=== PATIENT | male | born 1955 | race Caucasian/White ===

== ENCOUNTER 2024-01-25 06:21 | Observation (INO) | payer OTHER ==
[2024-01-25] MEDS ORDERED: BACIGUENT 30 GM ONE (07:16)
[2024-01-25] MEDS ORDERED: DIPRIVAN 200 MG/20 ML IV ONE ×4 (09:04→09:31)
[2024-01-25] MEDS ORDERED: MORPHINE SULFATE 2 MG INJ ONE ×3 (10:07→10:40)
[2024-01-25] MEDS ORDERED: Hydromorphone 1 mg/ml Injection ONE ×2 (10:52→11:00)
[2024-01-25] MEDS ORDERED: Lactated Ringers 1,000 ML IV ONE ×2 (10:57→15:00)
--- NOTE | 2024-01-25 12:01 | XRAY ---
Indication: Spinal cord stimulator trial. Intraoperative fluoroscopy provided for 6 minutes 22 seconds. 3 digital spot images submitted for interpretation demonstrates introducer needle tip posterior to thoracolumbar junction. Ultimately, a single epidural lead inserted with tip positioned somewhere mid thoracic spine. Correlate with intraoperative findings/report.
--- NOTE | 2024-01-25 12:25 | XRAY ---
Six minutes and 22 seconds of fluoroscopy was used in surgery for a spinal cord stem trial.
[2024-01-25] MEDS ORDERED: Sodium Chloride 0.9(Preservative Free) 10 ML IJ ONE (13:26)
[2024-01-25] MEDS ORDERED: LIDOCAINE HCL 1% 50 MG/5 ML VL PF IJ ONE (13:26)
[2024-01-25] MEDS ORDERED: Hydromorphone 1 mg/ml Injection IV PRN (13:39)
--- NOTE | 2024-01-25 13:49 | PCM.HP ---
History of Present Illness - Chief Complaint Chief Complaint: back pain post spinal stim placement Date: 01/25/24 History of Present Illness: is a 68 year old male with PMHX of BPH, heart stent, peripheral neuropathy, chronic thoracic/lumbar back pain with radiculopathy > 10 yrs. He had a procedure with pain management today where spinal stimulator was placed. In post op area he woke up with increased pain. Pain may be second to laying on abd. for extended periods of time per pain management physician Dr. See. He had to lay on his abdomen for over an hour during procedure. Spinal stimulator is currently not on. Pt reports versed was helpful post OR. Pt reports 8/10 pain with 1 hour post Dilaudid 1 mg IV. Dilaudid changed to 2mg Q4 PRN. Will restart lyrica as he describes thoracic and lumbar radiculopathy that has increased down BL legs post procedure. This has increased more than normal post procedure. Will start baclofen x1 dose now. May apply ice pack to back PRN. He has not urinated since procedure today. He also has not had anything to eat and not much to drink. Will obtain bladder scan for further eval. May need roblero. He denies CP, SOB, abd. pain. N/V/D. Pt reported dialudid 2mg is not helping his pain at this point either. He has taken norco in the past and this was helpful for his pain. However, [facility] and changed to belbuca. He last took Belcuca this AM and does not have anymore with him. He takes Belbuca BID. Will start [place] for now. Nurse to call and start Belbuca in the AM. We do not carry Belbuca at this hospital. Discussed plan of care with pt and nurse. - Review of Systems Constitutional: No Fever, No Chills Eyes: No Symptoms Ears, Nose, & Throat: No Symptoms Respiratory: No Cough, No Short Of Breath Cardiac: No Chest Pain, No Edema, No Syncope Abdominal/Gastrointestinal: No Abdominal Pain, No Nausea, No Vomiting, No Diarrhea Genitourinary Symptoms: No Dysuria Musculoskeletal: Back Pain (lumbar), No Neck Pain Skin: No Rash Neurological: No Dizziness, No Focal Weakness, No Sensory Changes Psychological: No Symptoms Endocrine: No Symptoms Hematologic/Lymphatic: No Symptoms Immunological/Allergic: No Symptoms Medications & Allergies Allergies/Adverse Reactions: Allergies Allergy/AdvReac Type Severity Reaction Status Date / Time No Known Drug Allergies Allergy Unverified 01/25/24 14:06 - Past Medical History Past Medical History: Yes Neurological History: Peripheral Neuropathy ENT History: No Pertinent History Cardiac History: Other (heart stent) Respiratory History: No Pertinent History Endocrine Medical History: No Pertinent History Musculoskelatal History: Other (chronic lumnar and thoracic back pain >10 yrs with radiculopathy) GI Medical History: No Pertinent History History: Other (BPH) Pyscho-Social History: No Pertinent History Male Reproductive Disorders: No Pertinent History - Past Surgical History Past Surgical History: Yes Cardiac History: Cardiac Stent Respiratory Surgery: No Pertinent History GI Surgical History: No Pertinent History Genitourinary Surgical Hx: No Pertinent History Musculskeletal Surgical Hx: No Pertinent History, Joint Replacement (knee) Male Surgical History: No Pertinent History Significant Family History: no pertinent family hx - Physical Exam General Appearance: moderate distress, alert, obese Neurologic Exam: alert, oriented x 3, cooperative, normal mood/affect, nml cerebellar function, nml station & gait, sensation nml, No motor deficits Eye Exam: PERRL/EOMI, eyes nml inspection Ears, Nose, Throat Exam: normal ENT inspection, TMs normal, pharynx normal, moist mucous membranes Neck Exam: normal inspection, non-tender, supple, full range of motion Respiratory Exam: normal breath sounds, lungs clear, No respiratory distress Cardiovascular Exam: regular rate/rhythm, normal heart sounds, normal peripheral pulses Gastrointestinal/Abdomen Exam: soft, normal bowel sounds, No tenderness, No mass Back Exam: decreased range of motion, muscle spasm, point tenderness, No CVA tenderness, No vertebral tenderness Extremity Exam: normal inspection, normal range of motion, pelvis stable Skin Exam: normal color, warm, dry, No rash Lymphatic Exam: No adenopathy Results - Radiology Impressions Radiology Exams & Impressions: Radiology Procedures Category Date Time Status FLUORO GUIDE NEEDLE PLACE-PMG Routine Exams 01/25/24 00:21 Completed LUMBAR LIMITED (2 OR 3 VIEWS) Routine Exams 01/25/24 00:21 Completed - Other Procedures and Tests Respiratory Therapy 01/25/24 13:25 Oxygen Nasal Cannula 3 lpm Assessment/Plan (1) Acute lumbar back pain Current Visit: Yes Status: Acute Qualifiers: Back pain laterality: bilateral Sciatica laterality: bilateral sciatica Assessment & Plan: - Acute on Chronic - Pain 07/24 - Post spinal stimulator placement with Dr. See - pain management, today - admission observation for uncontrolled pain post procedure. - Dilaudid- narcotic pain medication IV for break through pain - PO narcotic pain meds - baclofen muscle relaxer x1 - continue Lyrica for radicular pain - ice pack PRN - Tele - Narcan - F/u with pain mgnt OP - Pt reported dialudid 2mg is not helping his pain at this point either. He has taken norco in the past and this was helpful for his pain. However, [facility] and changed to belbuca. He last took Belcuca this AM and does not have anymore with him. He takes Belbuca BID. Will start [place] for now. Will stop Dilaudid IV. Nurse to call and start Belbuca in the AM. We do not carry Belbuca at this hospital. Discussed plan of care with pt and nurse. Code(s): M54.50 - LOW BACK PAIN, UNSPECIFIED (2) Thoracic radiculopathy Current Visit: Yes Status: Acute Assessment & Plan: - Pt reports acute on chronic pain - see above plan for acute lumbar pain. Code(s): M54.14 - RADICULOPATHY, THORACIC REGION (3) Obesity, morbid, BMI 40.0-49.9 Current Visit: Yes Status: Chronic Assessment & Plan: - encouraged AHA diet and exercise as tolerated. Code(s): E66.01 - MORBID (SEVERE) OBESITY DUE TO EXCESS CALORIES (4) BPH (benign prostatic hyperplasia) Current Visit: Yes Status: Chronic Assessment & Plan: - Ccntinue flomax - Bladder scan PRN VTE: SCD Next of KIN: , Rabia Mccrary [phone] D/c plan: tomorrow Code status: Full Code(s): N40.0 - BENIGN PROSTATIC HYPERPLASIA WITHOUT LOWER URINRY TRACT SYMP Telemedicine Encounter - Telemedicine Encounter Telemedicine Encounter: The entirety of this encounter was performed via Telemedicine"
[2024-01-25] MEDS ORDERED: TYLENOL 325 MG PO PRN (13:52)
[2024-01-25] MEDS ORDERED: Compazine 10 MG/2 ML IM PRN (13:52)
[2024-01-25 14:09] LABS: Hematocrit 38.3 % (42-50); Hemoglobin 11.4 g/dL (12.5-18.0); Mean Cell Volume 95.3 fL (78-100); Mean Corpuscular Hemoglobin 28.4 pg (26-32); Mean Corpuscular Hgb Concent. 29.8 g/dL (32-36); Mean Platelet Volume 9.2 fL (7.5-11.0); Platelet Count 162 x10^3/uL (150-450); Red Blood Count 4.02 x10^6/uL (4.1-5.6); Red Cell Distribution Width 13.5 % (11.5-14.0); White Blood Count 8.4 x10^3/uL (4.0-10.5)
[2024-01-25] MEDS: Hydromorphone 1 mg/ml Injection IV PRN (14:13)
[2024-01-25 14:22] LABS: ALBUMIN 3.8 g/dL (3.5-5.0); ANION GAP 12.1 MEQ/L (5-15); BILIRUBIN,TOTAL 0.2 mg/dL (0.2-1.3); Calcium 8.4 mg/dL (8.4-10.2); Creatinine 1 0.93 mg/dL (0.66-1.25); EST GLOMERULAR FILTRATION RATE 88.3 ML/MIN; Potassium 4.7 mmol/L (3.5-5.1); Total Protein 6.1 g/dL (6.3-8.2)
[2024-01-25] MEDS: LYRICA 75 MG CAP PO SCH (14:28)
[2024-01-25] MEDS ORDERED: Narcan 0.4 MG/ML IV PRN (14:45)
[2024-01-25] MEDS: LIORESAL 10 MG PO ONE (14:51)
[2024-01-25] MEDS: Lactated Ringers 1,000 ML IV SCH (15:50)
[2024-01-25] MEDS: NORCO 5/325 MG PO PRN (17:03)
[2024-01-25] MEDS: NORCO 5/325 MG PO ONE (18:23)
[2024-01-25] MEDS: TYLENOL 325 MG PO SCH (20:16)
[2024-01-25] MEDS: Flomax 0.4 MG PO SCH (21:48)
[2024-01-25] MEDS: ZOCOR 20MG PO SCH (21:48)
[2024-01-26] MEDS: Hydromorphone 1 mg/ml Injection IV ONE (01:00)
[2024-01-26 04:46] LABS: Hematocrit 36.1 % (42-50); Hemoglobin 11.2 g/dL (12.5-18.0); Mean Cell Volume 92.8 fL (78-100); Mean Corpuscular Hemoglobin 28.8 pg (26-32); Mean Platelet Volume 9.8 fL (7.5-11.0); Platelet Count 179 x10^3/uL (150-450); Red Blood Count 3.89 x10^6/uL (4.1-5.6); Red Cell Distribution Width 13.9 % (11.5-14.0); White Blood Count 7.5 x10^3/uL (4.0-10.5)
[2024-01-26] MEDS: NORCO 10-325 MG PO PRN (05:13)
[2024-01-26 05:20] LABS: ANION GAP 12.6 MEQ/L (5-15); Calcium 8.2 mg/dL (8.4-10.2); Creatinine 1 0.86 mg/dL (0.66-1.25); EST GLOMERULAR FILTRATION RATE 93.2 ML/MIN; Potassium 4.4 mmol/L (3.5-5.1)
[2024-01-26] MEDS: LYRICA 150MG PO SCH (07:43)
[2024-01-26] MEDS: PERCOCET TABLET 5/325MG PO ONE (07:43)
[2024-01-26] MEDS: MEDICATION ON HOLD MC SCH ×2 (09:19→09:20)
[2024-01-26] MEDS: Cymbalta 30 MG Capsule PO SCH (09:22)
[2024-01-26] MEDS: Toprol Xl 50 MG PO SCH (09:22)
--- NOTE | 2024-01-26 12:18 | PCM.NOTE ---
Date and Time: 01/26/24 1209 Subjective Assessment: 01/25/24 is a 68 year old male with PMHX of BPH, heart stent, peripheral neuropathy, chronic thoracic/lumbar back pain with radiculopathy > 10 yrs. He had a procedure with pain management today where spinal stimulator was placed. In post op area he woke up with increased pain. Pain may be second to laying on abd. for extended periods of time per pain management physician Dr. See. He had to lay on his abdomen for over an hour during procedure. Spinal stimulator is currently not on. Pt reports versed was helpful post OR. Pt reports 8/10 pain with 1 hour post Dilaudid 1 mg IV. Dilaudid changed to 2mg Q4 PRN. Will restart lyrica as he describes thoracic and lumbar radiculopathy that has increased down BL legs post procedure. This has increased more than normal post procedure. Will start baclofen x1 dose now. May apply ice pack to back PRN. He has not urinated since procedure today. He also has not had anything to eat and not much to drink. Will obtain bladder scan for further eval. May need roblero. He denies CP, SOB, abd. pain. N/V/D. Pt reported dialudid 2mg is not helping his pain at this point either. He has taken norco in the past and this was helpful for his pain. However, [facility] and changed to belbuca. He last took Belcuca this AM and does not have anymore with him. He takes Belbuca BID. Will start [place] for now. Nurse to call and start Belbuca in the AM. We do not carry Belbuca at this hospital. Discussed plan of care with pt and nurse. 01/26/24 Pt continues to have pain this morning. [place] changed to percocet and lyrica changed to 300mg BID. Pt had an episode overnight where he went onto his knees and crawled to the bathroom and pulled the call light. He now has abrasions to the left knee. They had to use the Jennifer lift to get him up. It appears overnight he was started on Dilaudid again. Pt states this does nothing for his pain, this was stopped. He is c/o radiating pain from thoracic, lumbar region to BL legs/ thighs in the front. Discussed case with Dr. See- pain management. Will further evaluate with CT with IV contrast of thoracic and lumbar spine. was to bring in pt's Belbuca but she has yet to show up today and it it now noon. She did call the pt this morning and speak to him. We have been unable to reach her since she left yesterday. A voicemail was left last night to bring his Belbuca in this AM. Pt states this medication controls his pain best. Once she brings this in will stop Percocet. Pt did not do well with PT and cannot walk or stand for any period of time. He may need rehab at d/c. He denies CP, SOb, abd. pain, N/V/D. - Review of Systems Constitutional: Weakness, No Fever, No Chills Eyes: No Symptoms Ears, Nose, & Throat: No Symptoms Respiratory: No Cough, No Short Of Breath Cardiac: No Chest Pain, No Edema, No Syncope Abdominal/Gastrointestinal: No Abdominal Pain, No Nausea, No Vomiting, No Diarrhea Genitourinary Symptoms: No Dysuria Musculoskeletal: No Back Pain, No Neck Pain Skin: No Rash Neurological: Parasthesia (radicular pain BL upper thighs), No Dizziness, No Focal Weakness, No Sensory Changes Psychological: No Symptoms Endocrine: No Symptoms Hematologic/Lymphatic: No Symptoms Immunological/Allergic: No Symptoms Objective Exam General Appearance: moderate distress, alert, obese Neurologic Exam: alert, oriented x 3, nml cerebellar function, motor weakness, abnormal gait, No motor deficits Skin Exam: normal color, warm, dry, abrasion (left knee) Eye Exam: PERRL, EOMI, eyes nml inspection Ears, Nose, Throat Exam: normal ENT inspection, pharynx normal, moist mucous membranes Neck Exam: normal inspection, non-tender, supple, full range of motion Respiratory Exam: normal breath sounds, lungs clear, No respiratory distress Cardiovascular Exam: regular rate/rhythm, normal heart sounds Gastrointestinal/Abdomen Exam: soft, No tenderness, No mass Extremity Exam: normal inspection, normal range of motion Back Exam: normal inspection, normal range of motion, No CVA tenderness, No vertebral tenderness Male Genitalia Exam: deferred Rectal Exam: deferred Objective Data Vital Signs: Vital Signs - 24 hr Temp Pulse Resp BP BP Pulse Ox 01/26/24 11:43 98.2 F 76 11 L 118/57 140/72 98 01/26/24 08:00 98.7 F 86 20 140/72 95 01/26/24 07:49 97 01/26/24 04:00 98.9 F 82 26 H 134/82 98 01/26/24 01:47 96 01/25/24 23:40 99.8 F 80 24 158/67 94 L 01/25/24 19:44 100.0 F 89 17 146/65 93 L 01/25/24 16:00 98.6 F 77 12 119/69 96 01/25/24 14:29 97.4 F 101 H 19 150/80 97 01/25/24 14:22 97 01/25/24 13:36 97.4 F 101 H 19 150/80 97 Pain Assessment - Last Documented Pain Intensity 4 Pain Scale Used 0-10 Pain Scale Intake and Output: Intake & Output 01/24/24 01/25/24 01/26/24 01/27/24 11:59 11:59 11:59 11:59 Intake Total 1402 Output Total 1150 Balance 252 Weight 139.5 kg Lab Results: Lab Results-Last 24 Hours 01/25/24 01/25/24 01/26/24 Range/Units 14:00 14:00 04:12 WBC 8.4 7.5 (4.0-10.5) x10^3/uL RBC 4.02 L 3.89 L (4.1-5.6) x10^6/uL Hgb 11.4 L 11.2 L (12.5-18.0) g/dL Hct 38.3 L 36.1 L (42-50) % MCV 95.3 92.8 (78-100) fL MCH 28.4 28.8 (26-32) pg MCHC 29.8 L 31.0 L (32-36) g/dL RDW 13.5 13.9 (11.5-14.0) % Plt Count 162 179 (150-450) x10^3/uL MPV 9.2 9.8 (7.5-11.0) fL Sodium 139 (135-145) mmol/L Potassium 4.7 (3.5-5.1) mmol/L Chloride 107 (98-107) mmol/L Carbon Dioxide 25 (22-30) mmol/L Anion Gap 12.1 (5-15) MEQ/L BUN 20 (9-20) mg/dL Creatinine 0.93 (0.66-1.25) mg/dL Estimated GFR 88.3 ML/MIN Glucose 139 H (74-106) mg/dL Calcium 8.4 (8.4-10.2) mg/dL Total Bilirubin 0.20 (0.2-1.3) mg/dL AST 25 (17-59) U/L ALT 17 (0-50) U/L Alkaline Phosphatase 89 (38-126) U/L Serum Total Protein 6.1 L (6.3-8.2) g/dL Albumin 3.8 (3.5-5.0) g/dL 01/26/24 Range/Units 04:12 WBC (4.0-10.5) x10^3/uL RBC (4.1-5.6) x10^6/uL Hgb (12.5-18.0) g/dL Hct (42-50) % MCV (78-100) fL MCH (26-32) pg MCHC (32-36) g/dL RDW (11.5-14.0) % Plt Count (150-450) x10^3/uL MPV (7.5-11.0) fL Sodium 136 (135-145) mmol/L Potassium 4.4 (3.5-5.1) mmol/L Chloride 103 (98-107) mmol/L Carbon Dioxide 25 (22-30) mmol/L Anion Gap 12.6 (5-15) MEQ/L BUN 18 (9-20) mg/dL Creatinine 0.86 (0.66-1.25) mg/dL Estimated GFR 93.2 ML/MIN Glucose 132 H (74-106) mg/dL Calcium 8.2 L (8.4-10.2) mg/dL Total Bilirubin (0.2-1.3) mg/dL AST (17-59) U/L ALT (0-50) U/L Alkaline Phosphatase (38-126) U/L Serum Total Protein (6.3-8.2) g/dL Albumin (3.5-5.0) g/dL Radiology Exams: Radiology Procedures Category Date Time Status FLUORO GUIDE NEEDLE PLACE-PMG Routine Exams 01/25/24 00:21 Completed LSPINE W/WO CONTRAST [CT] Routine Exams 01/26/24 07:25 Ordered LUMBAR LIMITED (2 OR 3 VIEWS) Routine Exams 01/25/24 00:21 Completed THORACIC SPINE W AND W/O CONTR [CT] Routine Exams 01/26/24 07:25 Ordered Assessment/Plan (1) Acute lumbar back pain Current Visit: Yes Status: Acute Qualifiers: Back pain laterality: bilateral Sciatica laterality: bilateral sciatica Code(s): M54.50 - LOW BACK PAIN, UNSPECIFIED (2) Thoracic radiculopathy Current Visit: Yes Status: Acute Code(s): M54.14 - RADICULOPATHY, THORACIC REGION (3) Obesity, morbid, BMI 40.0-49.9 Current Visit: Yes Status: Chronic Code(s): E66.01 - MORBID (SEVERE) OBESITY DUE TO EXCESS CALORIES (4) BPH (benign prostatic hyperplasia) Current Visit: Yes Status: Chronic Assessment & Plan: (1) Acute lumbar back pain Current Visit: Yes Status: Acute Qualifiers: Back pain laterality: bilateral Sciatica laterality: bilateral sciatica Assessment & Plan: - Acute on Chronic - Pain 07/24 - Post spinal stimulator placement with Dr. See - pain management, today - admission observation for uncontrolled pain post procedure. - Dilaudid- narcotic pain medication IV for break through pain - PO narcotic pain meds - baclofen muscle relaxer x1 - continue Lyrica for radicular pain - ice pack PRN - Tele - Narcan - F/u with pain mgnt OP - Pt reported dialudid 2mg is not helping his pain at this point either. He has taken norco in the past and this was helpful for his pain. However, [facility] and changed to belbuca. He last took Belcuca this AM and does not have anymore with him. He takes Belbuca BID. Will start [place] for now. Will stop Dilaudid IV. Nurse to call and start Belbuca in the AM. We do not carry Belbuca at this hospital. Discussed plan of care with pt and nurse. 01/25 - CT lumbar spine with contrast - PT eval- did not do well today, + weakness. Code(s): M54.50 - LOW BACK PAIN, UNSPECIFIED (2) Thoracic radiculopathy Current Visit: Yes Status: Acute Assessment & Plan: - Pt reports acute on chronic pain - see above plan for acute lumbar pain. 01/25 - CT Thoracic spine with IV contrast Code(s): M54.14 - RADICULOPATHY, THORACIC REGION (3) Obesity, morbid, BMI 40.0-49.9 Current Visit: Yes Status: Chronic Assessment & Plan: - encouraged AHA diet and exercise as tolerated. Code(s): E66.01 - MORBID (SEVERE) OBESITY DUE TO EXCESS CALORIES (4) BPH (benign prostatic hyperplasia) Current Visit: Yes Status: Chronic Assessment & Plan: - Ccntinue flomax - Bladder scan PRN VTE: SCD Next of KIN: , Rabia Mccrary [phone] D/c plan: tomorrow? Code status: Full Code(s): N40.0 - BENIGN PROSTATIC HYPERPLASIA WITHOUT LOWER URINRY TRACT SYMP Code(s): N40.0 - BENIGN PROSTATIC HYPERPLASIA WITHOUT LOWER URINRY TRACT SYMP
[2024-01-26] MEDS: PERCOCET TABLET 5/325MG PO PRN (13:18)
--- NOTE | 2024-01-26 13:36 | XRAY ---
Indication: Pain with radiculopathy. Multiple contiguous axial images obtained through the thoracic spine prior to and following 80 cc as ordered. Sagittal and coronal reformatted images obtained. Comparison: None Osseous structures demineralized. Axial images negative for acute fracture, suspicious bony lesions, or spinal canal stenosis. Multilevel mild/moderate bridging and nonbridging anterior endplate osteophytes. Lower thoracic segments demonstrates a few tiny Schmorl nodes Single epidural lead terminates T7. Sagittal and coronal reformatted images demonstrates normal thoracic alignment with minimal T4-L1 disc space narrowing. No acute compression fracture or subluxation. Visualized noncontrasted soft tissues demonstrates minimal pulmonary dependent atelectasis, multiple tiny bilateral pulmonary calcified granulomas, small bilateral hilar calcified nodes, extensive coronary calcifications, and mildly arteriosclerotic aorta. CT lumbar spine reported separately. Impression: 1. Chronic findings including osteopenia, multilevel degenerative changes, tiny Schmorl nodes, epidural lead terminating T7, arteriosclerotic disease, and old granulomatous disease. 2. Remaining CT thoracic spine with and without contrast exam is negative.
--- NOTE | 2024-01-26 13:44 | XRAY ---
Indication: Pain with radiculopathy. Multiple contiguous axial images obtained through the lumbar spine prior to and following 80 cc as ordered. Sagittal and coronal reformatted images obtained. Comparison: None CT thoracic spine reported separately. Osseous structures demineralized. Axial images negative for acute fracture, suspicious bony lesions, or spinal canal stenosis. Minimal/mild multilevel endplate spurring greatest at L1-L2, minimal degenerative vacuum disc phenomena at L1-L2, and L1-S1 broad-based disc bulge greatest at L4-S1 levels. Incidental multilevel tiny Schmorl nodes and single epidural lead entering posteriorly at T11-T12 with left-sided epidural generator. Sagittal and coronal reformatted images demonstrates normal lumbar alignment with L1-L3 disc space narrowing. No acute compression fracture or subluxation. Visualized noncontrasted soft tissues demonstrates right renal cortical scarring, 2.6 cm right upper renal round enhancing lesion, nonobstructing left renal micro-calculi largest 6 mm, and mild scattered aortoiliac calcifications without AAA. CT lumbar spine reported separately. Impression: 1. Multilevel broad-based disc bulge greatest at L4-S1 levels. 2. 2.6 cm right renal enhancing mass worrisome for malignancy. 3. Chronic findings including osteopenia, multilevel tiny Schmorl nodes, arteriosclerotic disease, and nonobstructing left renal micro-calculi.
[2024-01-26] MEDS: ECOTRIN 81 MG PO SCH (17:17)
[2024-01-26] MEDS: PATIENT OWN MEDICATION BC SCH (20:46)
[2024-01-27 05:21] LABS: Hematocrit 38.9 % (42-50); Hemoglobin 11.6 g/dL (12.5-18.0); Mean Cell Volume 95.1 fL (78-100); Mean Corpuscular Hemoglobin 28.4 pg (26-32); Mean Corpuscular Hgb Concent. 29.8 g/dL (32-36); Platelet Count 164 x10^3/uL (150-450); Red Blood Count 4.09 x10^6/uL (4.1-5.6); Red Cell Distribution Width 13.7 % (11.5-14.0); White Blood Count 6.6 x10^3/uL (4.0-10.5)
[2024-01-27 05:38] LABS: ANION GAP 10.3 MEQ/L (5-15); Calcium 8.5 mg/dL (8.4-10.2); Creatinine 1 0.97 mg/dL (0.66-1.25); Potassium 4.7 mmol/L (3.5-5.1)
[2024-01-27] MEDS: Hydromorphone 1 mg/ml Injection IV PRN (06:34)
[2024-01-27] MEDS ORDERED: Hydromorphone 1 mg/ml Injection IV PRN (06:47)
--- NOTE | 2024-01-27 10:35 | PCM.NOTE ---
Date and Time: 01/27/24 1035 Subjective Assessment: 01/25/24 is a 68 year old male with PMHX of BPH, heart stent, peripheral neuropathy, chronic thoracic/lumbar back pain with radiculopathy > 10 yrs. He had a procedure with pain management today where spinal stimulator was placed. In post op area he woke up with increased pain. Pain may be second to laying on abd. for extended periods of time per pain management physician Dr. See. He had to lay on his abdomen for over an hour during procedure. Spinal stimulator is currently not on. Pt reports versed was helpful post OR. Pt reports 8/10 pain with 1 hour post Dilaudid 1 mg IV. Dilaudid changed to 2mg Q4 PRN. Will restart lyrica as he describes thoracic and lumbar radiculopathy that has increased down BL legs post procedure. This has increased more than normal post procedure. Will start baclofen x1 dose now. May apply ice pack to back PRN. He has not urinated since procedure today. He also has not had anything to eat and not much to drink. Will obtain bladder scan for further eval. May need roblero. He denies CP, SOB, abd. pain. N/V/D. Pt reported dialudid 2mg is not helping his pain at this point either. He has taken norco in the past and this was helpful for his pain. However, [facility] and changed to belbuca. He last took Belcuca this AM and does not have anymore with him. He takes Belbuca BID. Will start [place] for now. Nurse to call and start Belbuca in the AM. We do not carry Belbuca at this hospital. Discussed plan of care with pt and nurse. 01/26/24 Pt continues to have pain this morning. [place] changed to percocet and lyrica changed to 300mg BID. Pt had an episode overnight where he went onto his knees and crawled to the bathroom and pulled the call light. He now has abrasions to the left knee. They had to use the Jennifer lift to get him up. It appears overnight he was started on Dilaudid again. Pt states this does nothing for his pain, this was stopped. He is c/o radiating pain from thoracic, lumbar region to BL legs/ thighs in the front. Discussed case with Dr. See- pain management. Will further evaluate with CT with IV contrast of thoracic and lumbar spine. was to bring in pt's Belbuca but she has yet to show up today and it it now noon. She did call the pt this morning and speak to him. We have been unable to reach her since she left yesterday. A voicemail was left last night to bring his Belbuca in this AM. Pt states this medication controls his pain best. Once she brings this in will stop Percocet. Pt did not do well with PT and cannot walk or stand for any period of time. He may need rehab at d/c. He denies CP, SOB, abd. pain, N/V/D. 01/27/24 Pt has allodynia to BL thighs with light touch yells in pain, mood is labile. He admits to taking more than prescribed Belcuca at home, sometime 2-3 strips at time. This is prescribed by OR. It is taking 3-4 people to get him from bed to chair. Pain is improved sitting up in chair. He is eating and drinking well. He states he has leg weakness post spinal stim placement 2 days ago. He states he walked in here and now cannot walk. Pain management physician, Dr. See at [facility], is board certified in pain and neurology. He states sxs do not correlate. He did lay on his abdomen for almost 2 hours for procedure. Baclofen, dilaudid, norco, percocet did not help pain. So restarted on prescribed dose of belbuca by pain management at OR. Lyrica increased to max dosing and pt states this is not helping with radicular pain. CT of thoracic and lumbar region in chart to review. No new concerning findings per Dr. See at [facility]- pain mgnt that placed spinal stim. This is day 3 and sxs have not improved. He has been screaming out in pain at times. He is wanting us to give more of his home belbuca than what is prescribed. I do not feel comfortable doing this. Tele- Neurology consulted today to ask if he feels we need to transfer to OR. He follows OR for narcotic pain meds and was sent to pain management at [facility] for spinal stim placement. Suggested rehab placement for pt and he feels this will not be helpful for him if he cannot walk. Hopefully, Neurology can lead us in the proper direction. Pt has a f/u appointment with Dr. See Tuesday for spinal stim placement post procedure f/u. He denies CP, SOb, abd. pain, N/V/D. - Review of Systems Constitutional: Weakness, No Fever, No Chills Eyes: No Symptoms Ears, Nose, & Throat: No Symptoms Respiratory: No Cough, No Short Of Breath Cardiac: No Chest Pain, No Edema, No Syncope Abdominal/Gastrointestinal: No Abdominal Pain, No Nausea, No Vomiting, No Diarrhea Genitourinary Symptoms: No Dysuria Musculoskeletal: Back Pain, No Neck Pain Skin: No Rash Neurological: Other (pain with touching thighs), No Dizziness, No Focal Weakness, No Sensory Changes Psychological: No Symptoms, Emotional Lability Endocrine: No Symptoms Hematologic/Lymphatic: No Symptoms Immunological/Allergic: No Symptoms Objective Exam General Appearance: moderate distress, alert, obese Neurologic Exam: alert, oriented x 3, nml cerebellar function, sensation nml, ag itation, motor weakness, abnormal gait, other (allodynia BL thighs with light touch), No motor deficits Skin Exam: normal color, warm, dry Eye Exam: PERRL, EOMI, eyes nml inspection Ears, Nose, Throat Exam: normal ENT inspection, pharynx normal, moist mucous membranes Neck Exam: normal inspection, non-tender, supple, full range of motion Respiratory Exam: normal breath sounds, lungs clear, No respiratory distress Cardiovascular Exam: regular rate/rhythm, normal heart sounds Gastrointestinal/Abdomen Exam: soft, No tenderness, No mass Extremity Exam: normal inspection, limited range of motion (BLLE) Back Exam: normal inspection, decreased range of motion, No CVA tenderness, No vertebral tenderness Male Genitalia Exam: deferred Rectal Exam: deferred Objective Data Vital Signs: Vital Signs - 24 hr Temp Pulse Resp BP BP Pulse Ox 01/27/24 08:00 97.7 F 89 19 170/70 99 01/27/24 04:00 98.1 F 68 22 160/75 94 L 01/27/24 00:00 98.0 F 74 21 116/55 95 01/26/24 20:00 97.6 F 68 20 135/61 97 01/26/24 19:41 99 01/26/24 15:32 97.6 F 76 16 141/80 96 01/26/24 11:43 98.2 F 76 11 L 118/57 140/72 98 Pain Assessment - Last Documented Pain Intensity 8 Pain Scale Used 0-10 Pain Scale Intake and Output: Intake & Output 01/24/24 01/25/24 01/26/24 01/27/24 11:59 11:59 11:59 11:59 Intake Total 1402 2091 Output Total 1150 2704 Balance 252 -473 Weight 139.5 kg Lab Results: Lab Results-Last 24 Hours 01/27/24 01/27/24 01/27/24 Range/Units 04:25 04:25 04:25 WBC 6.6 (4.0-10.5) x10^3/uL RBC 4.09 L (4.1-5.6) x10^6/uL Hgb 11.6 L (12.5-18.0) g/dL Hct 38.9 L (42-50) % MCV 95.1 (78-100) fL MCH 28.4 (26-32) pg MCHC 29.8 L (32-36) g/dL RDW 13.7 (11.5-14.0) % Plt Count 164 (150-450) x10^3/uL MPV 10.0 (7.5-11.0) fL Sodium 140 (135-145) mmol/L Potassium 4.7 (3.5-5.1) mmol/L Chloride 105 (98-107) mmol/L Carbon Dioxide 29 (22-30) mmol/L Anion Gap 10.3 (5-15) MEQ/L BUN 20 (9-20) mg/dL Creatinine 0.97 (0.66-1.25) mg/dL Estimated GFR 84.0 ML/MIN Glucose 135 H (74-106) mg/dL Calcium 8.5 (8.4-10.2) mg/dL Creatine Kinase 271 H (55-170) U/L Radiology Exams: Radiology Procedures Category Date Time Status LSPINE W/WO CONTRAST [CT] Routine Exams 01/26/24 07:25 Completed THORACIC SPINE W AND W/O CONTR [CT] Routine Exams 01/26/24 07:25 Completed Multi-Disciplinary Progress Notes: Multi-Disciplinary Progress Notes 01/27/24 09:44 Physical Therapy Note by Mya ([id number])[facility] WAS SEEN FOR PHYSICAL THERAPY 01/27/24. PT WAS UP IN CHAIR UPON ENTERING AND WANTING TO GO BACK TO BED D/T PAIN AND DISCOMFORT IN B LEGS. PT O2 WAS 98% (ON 2L O2) AND HR 91 AT REST. PT HAS NOTABLE WEAKNESS IN B ANKLES AND THIGHS WELL HYPERALGESIA TO LIGHT TOUCH. PT STOOD MOD A X 2 FROM CHAIR WITH ROLLING WALKER AND THEN WALKED APPROXIMATELY 5 FEET WITH MIN-MOD A X 2. PT WAS THEN MOD A X 2 FOR SIT > SUPINE TRANSITION WITH CUING NEEDED FOR SAFETY OF BED POSITIONING. PT WAS LEFT IN BED WITH NURSING AIDS FOR HYGIENE TASKS, CALL LIGHT WAS WITHIN REACH. Initialized on 01/27/24 09:44 - END OF NOTE Assessment/Plan (1) Acute lumbar back pain Current Visit: Yes Status: Acute Qualifiers: Back pain laterality: bilateral Sciatica laterality: bilateral sciatica Code(s): M54.50 - LOW BACK PAIN, UNSPECIFIED (2) Thoracic radiculopathy Current Visit: Yes Status: Acute Code(s): M54.14 - RADICULOPATHY, THORACIC REGION (3) Obesity, morbid, BMI 40.0-49.9 Current Visit: Yes Status: Chronic Code(s): E66.01 - MORBID (SEVERE) OBESITY DUE TO EXCESS CALORIES (4) BPH (benign prostatic hyperplasia) Current Visit: Yes Status: Chronic Assessment & Plan: (1) Acute lumbar back pain Current Visit: Yes Status: Acute Qualifiers: Back pain laterality: bilateral Sciatica laterality: bilateral sciatica Assessment & Plan: - Acute on Chronic - Pain 07/24 - Post spinal stimulator placement with Dr. See - pain management, today - admission observation for uncontrolled pain post procedure. - Dilaudid- narcotic pain medication IV for break through pain - PO narcotic pain meds - baclofen muscle relaxer x1 - continue Lyrica for radicular pain - ice pack PRN - Tele - Narcan - F/u with pain mgnt OP - Pt reported dialudid 2mg is not helping his pain at this point either. He has taken norco in the past and this was helpful for his pain. However, [facility] and changed to belbuca. He last took Belcuca this AM and does not have anymore with him. He takes Belbuca BID. Will start [place] for now. Will stop Dilaudid IV. Nurse to call and start Belbuca in the AM. We do not carry Belbuca at this hospital. Discussed plan of care with pt and nurse. 01/25 - CT lumbar spine with contrast- reviewed and discussed with Dr. See and Dr. Hassan - PT eval- did not do well today, + weakness. - Discussed case in detail with Dr. See who placed spinal stim 01/26 - tele- neurology consult - Pt asking for more than what is prescribed of belcuca and admits to taking 2-3 strips at home, " what ever he feels like he needs." - Discussed taking [facility] - [facility] - Increased dose of Lyrica not helping pain per pt. - Per PT - taking 3-4 people to get pt from bed to chair. - Will need narcan at D/C. - Narcan on med list IP - Day 3 post spinal stim placement with no improvement - pain stim turned on 01/25 and he feels no improvement per pt. Code(s): M54.50 - LOW BACK PAIN, UNSPECIFIED (2) Thoracic radiculopathy Current Visit: Yes Status: Acute Assessment & Plan: - Pt reports acute on chronic pain - see above plan for acute lumbar pain. 01/25 - CT Thoracic spine with IV contrast- reviewed and discussed with Dr. See and Dr. Hassan Code(s): M54.14 - RADICULOPATHY, THORACIC REGION (3) Obesity, morbid, BMI 40.0-49.9 Current Visit: Yes Status: Chronic Assessment & Plan: - encouraged AHA diet and exercise as tolerated. Code(s): E66.01 - MORBID (SEVERE) OBESITY DUE TO EXCESS CALORIES (4) BPH (benign prostatic hyperplasia) Current Visit: Yes Status: Chronic Assessment & Plan: - Continue flomax - Bladder scan PRN - UA pending Code(s): N40.0 - BENIGN PROSTATIC HYPERPLASIA WITHOUT LOWER URINRY TRACT SYMP (5) Elevated creatine kinase Current Visit: Yes Status: Acute Assessment & Plan: - 2:2 laying on abd for extended period of time almost 2 hours during stim placement - CK 01/26 271- IVF (6) Renal mass, right Current Visit: Yes Status: Chronic Assessment & Plan: - as seen on lumbar CT: 2. 2.6 cm right renal enhancing mass worrisome for malignancy. - Pt aware of this and states this is chronic. He reports he follows Nephro OP for this at OR. VTE: SCD Next of KIN: , Rabia Mccrary [phone] D/c plan: tomorrow? Code status: Full Code(s): N28.89 - OTHER SPECIFIED DISORDERS OF KIDNEY AND URETER
[2024-01-27 16:50] LABS: ADD URINE CULTURE? NO (NO); Appearance Clear (Clear); Bacteria None Seen /HPF (None Seen); Bilirubin Negative (Negative); Blood Negative (Negative); Epithelial Cells None Seen /HPF (None Seen); Glucose, Urine Negative (Negative); Hyaline Casts NONE SEEN /LPF (0-2); Ketones Negative (Negative); Leukocyte Esterase Negative (Negative); Nitrite Negative (Negative); Protein,Urine Dip Negative (Negative); RBC 0-2 /HPF (0-5); Specific Gravity 1.015 (1.005-1.030); Urobilinogen 0.2 mg/dL (0.2); WBC 0-2 /HPF (0-5)
[2024-01-27] MEDS: LIORESAL 10 MG PO SCH (22:03)
[2024-01-28] MEDS ORDERED: APRESOLINE 20 MG/ML INJ IV PRN (07:35)
[2024-01-28 08:08] LABS: Hematocrit 37.9 % (42-50); Hemoglobin 11.7 g/dL (12.5-18.0); Mean Corpuscular Hgb Concent. 30.9 g/dL (32-36); Mean Platelet Volume 9.4 fL (7.5-11.0); Platelet Count 165 x10^3/uL (150-450); Red Blood Count 4.03 x10^6/uL (4.1-5.6); Red Cell Distribution Width 13.7 % (11.5-14.0); White Blood Count 7.8 x10^3/uL (4.0-10.5)
--- NOTE | 2024-01-28 08:21 | PCM.NOTE ---
Date and Time: 01/28/24 0813 Subjective Assessment: 01/25/24 is a 68 year old male with PMHX of BPH, heart stent, peripheral neuropathy, chronic thoracic/lumbar back pain with radiculopathy > 10 yrs. He had a procedure with pain management today where spinal stimulator was placed. In post op area he woke up with increased pain. Pain may be second to laying on abd. for extended periods of time per pain management physician Dr. See. He had to lay on his abdomen for over an hour during procedure. Spinal stimulator is currently not on. Pt reports versed was helpful post OR. Pt reports 8/10 pain with 1 hour post Dilaudid 1 mg IV. Dilaudid changed to 2mg Q4 PRN. Will restart lyrica as he describes thoracic and lumbar radiculopathy that has increased down BL legs post procedure. This has increased more than normal post procedure. Will start baclofen x1 dose now. May apply ice pack to back PRN. He has not urinated since procedure today. He also has not had anything to eat and not much to drink. Will obtain bladder scan for further eval. May need roblero. He denies CP, SOB, abd. pain. N/V/D. Pt reported dialudid 2mg is not helping his pain at this point either. He has taken norco in the past and this was helpful for his pain. However[facility] and changed to belbuca. He last took Belcuca this AM and does not have anymore with him. He takes Belbuca BID. Will start [place] for now. Nurse to call and start Belbuca in the AM. We do not carry Belbuca at this hospital. Discussed plan of care with pt and nurse. 01/26/24 Pt continues to have pain this morning. [place] changed to percocet and lyrica changed to 300mg BID. Pt had an episode overnight where he went onto his knees and crawled to the bathroom and pulled the call light. He now has abrasions to the left knee. They had to use the Jennifer lift to get him up. It appears overnight he was started on Dilaudid again. Pt states this does nothing for his pain, this was stopped. He is c/o radiating pain from thoracic, lumbar region to BL legs/ thighs in the front. Discussed case with Dr. See- pain management. Will further evaluate with CT with IV contrast of thoracic and lumbar spine. was to bring in pt's Belbuca but she has yet to show up today and it it now noon. She did call the pt this morning and speak to him. We have been unable to reach her since she left yesterday. A voicemail was left last night to bring his Belbuca in this AM. Pt states this medication controls his pain best. Once she brings this in will stop Percocet. Pt did not do well with PT and cannot walk or stand for any period of time. He may need rehab at d/c. He denies CP, SOB, abd. pain, N/V/D. 01/27/24 Pt has allodynia to BL thighs with light touch yells in pain, mood is labile. He admits to taking more than prescribed Belcuca at home, sometime 2-3 strips at time. This is prescribed by [facility]. It is taking 3-4 people to get him from bed to chair. Pain is improved sitting up in chair. He is eating and drinking well. He states he has leg weakness post spinal stim placement 2 days ago. He states he walked in here and now cannot walk. Pain management physician, Dr. See at [facility], is board certified in pain and neurology. He states sxs do not correlate. He did lay on his abdomen for almost 2 hours for procedure. Baclofen, dilaudid, norco, percocet did not help pain. So restarted on prescribed dose of belbuca by pain management at [facility]. Lyrica increased to max dosing and pt states this is not helping with radicular pain. CT of thoracic and lumbar region in chart to review. No new concerning findings per Dr. See at [facility]- pain mgnt that placed spinal stim. This is day 3 and sxs have not improved. He has been screaming out in pain at times. He is wanting us to give more of his home belbuca than what is prescribed. I do not feel comfortable doing this. Tele- Neurology consulted today to ask if he feels we need to transfer to [facility]. He follows [facility] for narcotic pain meds and was sent to pain management at [facility] for spinal stim placement. Suggested rehab placement for pt and he feels this will not be helpful for him if he cannot walk. Hopefully, Neurology can lead us in the proper direction. Pt has a f/u appointment with Dr. See Tuesday for spinal stim placement post procedure f/u. He denies CP, SOb, abd. pain, N/V/D. 01/28/[address] See from pain management yesterday and he was originally on board with pt tx to higher level of care. This was the recommendation from tele- neurology. However we met resistance from other facilities as they wanted the spinal stimulator out and an MRI done prior to transfer. Dr. See came after 5pm and MRI techs are gone after that time. They are also not available on the weekends as well. Dr. See added Baclofen 10mg BID. He would like him to stay until Tuesday to have MRI at our facility. Pt states he does not have as much pins and needles sensation in BL thighs since spinal stim taken out. He continues to have pain 06/23 today with his narcotic pain medication, Belbuca. He was able to get up out of bed to chair with heavy assist of 2 people and a gate belt today. Discussed with pt he will be here until Tuesday for MRI and then go from there. If he is still unable to walk he may need ECF placement. He is agreeable to this and would like someplace close to home. Reviewed overnight notes of staff and pt has been trying to get larger doses of narcotics than what is prescribed and earlier doses. Discussed again to stay on prescribed regimen from [facility] pain management or else he will run out. We do not carry his medication at this facility. He denies CP, SOB, abd. pain, N/V/D. He admits to continued BLLE weakness, radicular pain from back to BLLE, allodynia to BL thighs with light touch. - Review of Systems Constitutional: No Fever, No Chills Eyes: No Symptoms Ears, Nose, & Throat: No Symptoms Respiratory: No Cough, No Short Of Breath Cardiac: No Chest Pain, No Edema, No Syncope Abdominal/Gastrointestinal: Constipation, No Abdominal Pain, No Nausea, No Vomiting, No Diarrhea Genitourinary Symptoms: No Dysuria Musculoskeletal: Back Pain, No Neck Pain Skin: No Rash Neurological: Gait Changes, Irritability, Parasthesia, Sensory Changes, No Dizziness, No Focal Weakness Psychological: No Symptoms, Emotional Lability, Mood Changes Endocrine: No Symptoms Hematologic/Lymphatic: No Symptoms Immunological/Allergic: No Symptoms Objective Exam General Appearance: mild distress, alert, obese Neurologic Exam: alert, oriented x 3, motor deficits (weakness BLLE), agitation Skin Exam: normal color, warm, dry Eye Exam: PERRL, EOMI, eyes nml inspection Ears, Nose, Throat Exam: normal ENT inspection, pharynx normal, moist mucous membranes Neck Exam: normal inspection, non-tender, supple, full range of motion Respiratory Exam: normal breath sounds, lungs clear, No respiratory distress Cardiovascular Exam: regular rate/rhythm, murmur Gastrointestinal/Abdomen Exam: soft, No tenderness, No mass Extremity Exam: normal inspection, limited range of motion (BLLE weakness) Back Exam: normal inspection, decreased range of motion, No CVA tenderness, No vertebral tenderness Male Genitalia Exam: deferred Rectal Exam: deferred Objective Data Vital Signs: Vital Signs - 24 hr Temp Pulse Resp BP Pulse Ox 01/28/24 07:09 97.7 F 75 17 149/79 96 01/28/24 07:08 98 01/28/24 04:00 98.5 F 78 18 189/84 99 01/27/24 20:00 99.0 F 77 18 132/74 93 L 01/27/24 19:40 94 L 01/27/24 16:00 97.5 F 78 18 142/66 92 L 01/27/24 12:00 97.7 F 65 16 137/73 92 L 01/27/24 11:45 92 L Pain Assessment - Last Documented Pain Intensity 6 Pain Scale Used 0-10 Pain Scale Intake and Output: Intake & Output 01/25/24 01/26/24 01/27/24 01/28/24 11:59 11:59 11:59 11:59 Intake Total 1402 2091 360 Output Total 1150 2564 400 Balance 252 -473 -40 Weight 139.5 kg Lab Results: Lab Results-Last 24 Hours 01/26/24 01/28/24 Range/Units 16:44 07:55 WBC 7.8 (4.0-10.5) x10^3/uL RBC 4.03 L (4.1-5.6) x10^6/uL Hgb 11.7 L (12.5-18.0) g/dL Hct 37.9 L (42-50) % MCV 94.0 (78-100) fL MCH 29.0 (26-32) pg MCHC 30.9 L (32-36) g/dL RDW 13.7 (11.5-14.0) % Plt Count 165 (150-450) x10^3/uL MPV 9.4 (7.5-11.0) fL Urine Color Yellow (Yellow) Urine Appearance Clear (Clear) Urine pH 6.0 (4.6-8.0) Ur Specific Moro 1.015 (1.005-1.030) Urine Protein Negative (Negative) Urine Glucose (UA) Negative (Negative) mg/dL Urine Ketones Negative (Negative) Urine Blood Negative (Negative) Urine Nitrite Negative (Negative) Urine Bilirubin Negative (Negative) Urine Urobilinogen 0.2 (0.2) mg/dL Ur Leukocyte Esterase Negative (Negative) U Hyaline Cast (Auto) NONE SEEN (0-2) /LPF Urine Microscopic RBC 0-2 (0-5) /HPF Urine Microscopic WBC 0-2 (0-5) /HPF Ur Epithelial Cells None Seen (None Seen) /HPF Urine Bacteria None Seen (None Seen) /HPF Urine Culture Reflexed NO (NO) Radiology Exams: Radiology Procedures Category Date Time Status LSPINE W/WO CONTRAST [CT] Routine Exams 01/26/24 07:25 Completed THORACIC SPINE W AND W/O CONTR [CT] Routine Exams 01/26/24 07:25 Completed Multi-Disciplinary Progress Notes: Multi-Disciplinary Progress Notes 01/27/24 14:20 Case Management Note by Amy Dang FURTHER PLANS FOR DC HELD AT THIS TIME- WE ARE ATTEMPTING TO TRANSFER PATIENT TO HIGHER LEVEL OF CARE. PATIENT WAS INDEPENDENT WITH PRIOR TO STAY. HE DID NOT ANTICIPATE ANY NEW NEEDS AT DC. IF PATIENT DOES NOT TRANSFER TO HIGHER LEVEL OF CARE- NEEDS WILL NEED REASSESSED ACCORDING TO HOW PATIENT IS MOVING. Initialized on 01/27/24 14:20 - END OF NOTE 01/27/24 09:44 Physical Therapy Note by Mya ([id number]),[facility] WAS SEEN FOR PHYSICAL THERAPY 01/27/24. PT WAS UP IN CHAIR UPON ENTERING AND WANTING TO GO BACK TO BED D/T PAIN AND DISCOMFORT IN B LEGS. PT O2 WAS 98% (ON 2L O2) AND HR 91 AT REST. PT HAS NOTABLE WEAKNESS IN B ANKLES AND THIGHS WELL HYPERALGESIA TO LIGHT TOUCH. PT STOOD MOD A X 2 FROM CHAIR WITH ROLLING WALKER AND THEN WALKED APPROXIMATELY 5 FEET WITH MIN-MOD A X 2. PT WAS THEN MOD A X 2 FOR SIT > SUPINE TRANSITION WITH CUING NEEDED FOR SAFETY OF BED POSIT IONING. PT WAS LEFT IN BED WITH NURSING AIDS FOR HYGIENE TASKS, CALL LIGHT WAS WITHIN REACH. Initialized on 01/27/24 09:44 - END OF NOTE Assessment/Plan (1) Acute lumbar back pain Current Visit: Yes Status: Acute Qualifiers: Back pain laterality: bilateral Sciatica laterality: bilateral sciatica Code(s): M54.50 - LOW BACK PAIN, UNSPECIFIED (2) Thoracic radiculopathy Current Visit: Yes Status: Acute Code(s): M54.14 - RADICULOPATHY, THORACIC REGION (3) Obesity, morbid, BMI 40.0-49.9 Current Visit: Yes Status: Chronic Code(s): E66.01 - MORBID (SEVERE) OBESITY DUE TO EXCESS CALORIES (4) BPH (benign prostatic hyperplasia) Current Visit: Yes Status: Chronic Code(s): N40.0 - BENIGN PROSTATIC HYPERPLASIA WITHOUT LOWER URINRY TRACT SYMP (5) Elevated creatine kinase Current Visit: Yes Status: Acute (6) Renal mass, right Current Visit: Yes Status: Chronic Assessment & Plan: (1) Acute lumbar back pain Current Visit: Yes Status: Acute Qualifiers: Back pain laterality: bilateral Sciatica laterality: bilateral sciatica Assessment & Plan: - Acute on Chronic - Pain 07/24 - Post spinal stimulator placement with Dr. See - pain management, today - admission observation for uncontrolled pain post procedure. - Dilaudid- narcotic pain medication IV for break through pain - PO narcotic pain meds - baclofen muscle relaxer x1 - continue Lyrica for radicular pain - ice pack PRN - Tele - Narcan - F/u with pain mgnt OP - Pt reported dialudid 2mg is not helping his pain at this point either. He has taken norco in the past and this was helpful for his pain. However, [facility] and changed to belbuca. He last took Belcuca this AM and does not have anymore with him. He takes Belbuca BID. Will start [place] for now. Will stop Dilaudid IV. Nurse to call and start Belbuca in the AM. We do not carry Belbuca at this hospital. Discussed plan of care with pt and nurse. 01/25 - CT lumbar spine with contrast- reviewed and discussed with Dr. See and Dr. Hassan - PT eval- did not do well today, + weakness. - Discussed case in detail with Dr. See who placed spinal stim 01/26 - tele- neurology consult- discussed case with neurology - Pt asking for more than what is prescribed of Belbuca and admits to taking 2-3 strips at home, " what ever he feels like he needs." - Discussed taking meds as prescribed per [facility] pain management for safety - [facility] - Increased dose of Lyrica not helping pain per pt. - Per PT - taking 3-4 people to get pt from bed to chair. - Will need narcan at D/C. - Narcan on med list IP - Day 3 post spinal stim placement with no improvement - pain stim turned on 01/25 and he feels no improvement per pt. - unable to transfer as other facilities want spinal stim out and MRI. - Dr. See not available until later today to take out spinal stim. 01/27 - Spinal stim removed by Dr. See after 5pm on 01/26 - Unable to do MRI until Tuesday as we do not have techs here on weekends or after 5pm. - Pt reports less pins and needles sensation of BL legs post stim removal - Continued pain in back and down BL legs 06/23 with belbuca - Per overnight reports pt asking for increased dosing of pain meds again and wanting to take more of belbuca as he does this at home. - Pt verbally abusing staff when not feeling well then calling per nursing notes. - Belbuca [facility], we do not carry this medication at this facility and if we increase he will run out of medication. Therefore we cannot increase his dose. - Pt started on baclofen 10mg BID 01/[address] See- pt previously reported this does nothing for his pain on 01/24- will continue for now. - No loss of bowel or bladder since procedure Code(s): M54.50 - LOW BACK PAIN, UNSPECIFIED (2) Thoracic radiculopathy Current Visit: Yes Status: Acute Assessment & Plan: - Pt reports acute on chronic pain - see above plan for acute lumbar pain. 01/25 - CT Thoracic spine with IV contrast- reviewed and discussed with Dr. See and Dr. Hassan 01/27 - Pins and needles sensation improved with removal of spinal stim yesterday, per pt. Code(s): M54.14 - RADICULOPATHY, THORACIC REGION (3) Obesity, morbid, BMI 40.0-49.9 Current Visit: Yes Status: Chronic Assessment & Plan: - encouraged AHA diet and exercise as tolerated. Code(s): E66.01 - MORBID (SEVERE) OBESITY DUE TO EXCESS CALORIES (4) BPH (benign prostatic hyperplasia) Current Visit: Yes Status: Chronic Assessment & Plan: - Continue flomax - Bladder scan PRN - UA negative Code(s): N40.0 - BENIGN PROSTATIC HYPERPLASIA WITHOUT LOWER URINRY TRACT SYMP (5) Elevated creatine kinase Current Visit: Yes Status: Acute Assessment & Plan: - 2:2 laying on abd for extended period of time almost 2 hours during stim placement - CK 01/26 271- IVF 01/29 - CK 657- IVF turned down last night to 50ml/hr by nursing- no order given. IVF off this morning. - Asked Oxana RN to restart IVF @ 100ml/hr (6) Renal mass, right Current Visit: Yes Status: Chronic Assessment & Plan: - as seen on lumbar CT: 2. 2.6 cm right renal enhancing mass worrisome for malignancy. - Pt aware of this and states this is chronic. He reports he follows [facility] OP for this at [facility]. VTE: SCD Next of KIN: , Rabia Mccrary [phone] D/c plan: Tuesday? Code status: Full Code(s): N28.89 - OTHER SPECIFIED DISORDERS OF KIDNEY AND URETER
[2024-01-28 08:23] LABS: ALBUMIN 3.6 g/dL (3.5-5.0); ANION GAP 12.3 MEQ/L (5-15); BILIRUBIN,TOTAL 0.5 mg/dL (0.2-1.3); Calcium 8.4 mg/dL (8.4-10.2); Creatinine 1 0.78 mg/dL (0.66-1.25); EST GLOMERULAR FILTRATION RATE 95.9 ML/MIN; Potassium 4.3 mmol/L (3.5-5.1); Total Protein 6.4 g/dL (6.3-8.2)
[2024-01-28] MEDS: Docusate Sodium 100 MG PO PRN (08:52)
[2024-01-28] MEDS: Sodium Chloride 0.9% 1000 ML 1,000 ML IV SCH (12:02)
[2024-01-29 06:14] LABS: Hematocrit 38.8 % (42-50); Hemoglobin 11.2 g/dL (12.5-18.0); Mean Cell Volume 98.2 fL (78-100); Mean Corpuscular Hemoglobin 28.4 pg (26-32); Mean Corpuscular Hgb Concent. 28.9 g/dL (32-36); Mean Platelet Volume 9.8 fL (7.5-11.0); Platelet Count 153 x10^3/uL (150-450); Red Blood Count 3.95 x10^6/uL (4.1-5.6); Red Cell Distribution Width 13.8 % (11.5-14.0); White Blood Count 6.5 x10^3/uL (4.0-10.5)
[2024-01-29 06:32] LABS: ALBUMIN 3.7 g/dL (3.5-5.0); ANION GAP 12.4 MEQ/L (5-15); BILIRUBIN,TOTAL 0.5 mg/dL (0.2-1.3); Creatinine 1 0.76 mg/dL (0.66-1.25); EST GLOMERULAR FILTRATION RATE 96.7 ML/MIN; Potassium 4.2 mmol/L (3.5-5.1); Total Protein 6.3 g/dL (6.3-8.2)
--- NOTE | 2024-01-29 10:22 | PCM.NOTE ---
Date and Time: 01/29/24 1016 Subjective Assessment: 01/25/24 is a 68 year old male with PMHX of BPH, heart stent, peripheral neuropathy, chronic thoracic/lumbar back pain with radiculopathy > 10 yrs. He had a procedure with pain management today where spinal stimulator was placed. In post op area he woke up with increased pain. Pain may be second to laying on abd. for extended periods of time per pain management physician Dr. See. He had to lay on his abdomen for over an hour during procedure. Spinal stimulator is currently not on. Pt reports versed was helpful post OR. Pt reports 8/10 pain with 1 hour post Dilaudid 1 mg IV. Dilaudid changed to 2mg Q4 PRN. Will restart lyrica as he describes thoracic and lumbar radiculopathy that has increased down BL legs post procedure. This has increased more than normal post procedure. Will start baclofen x1 dose now. May apply ice pack to back PRN. He has not urinated since procedure today. He also has not had anything to eat and not much to drink. Will obtain bladder scan for further eval. May need roblero. He denies CP, SOB, abd. pain. N/V/D. Pt reported dialudid 2mg is not helping his pain at this point either. He has taken norco in the past and this was helpful for his pain. However[facility] and changed to belbuca. He last took Belcuca this AM and does not have anymore with him. He takes Belbuca BID. Will start Randlett for now. Nurse to call and start Belbuca in the AM. We do not carry Belbuca at this hospital. Discussed plan of care with pt and nurse. 01/26/24 Pt continues to have pain this morning. Randlett changed to percocet and lyrica changed to 300mg BID. Pt had an episode overnight where he went onto his knees and crawled to the bathroom and pulled the call light. He now has abrasions to the left knee. They had to use the Jennifer lift to get him up. It appears overnight he was started on Dilaudid again. Pt states this does nothing for his pain, this was stopped. He is c/o radiating pain from thoracic, lumbar region to BL legs/ thighs in the front. Discussed case with Dr. See- pain management. Will further evaluate with CT with IV contrast of thoracic and lumbar spine. was to bring in pt's Belbuca but she has yet to show up today and it it now noon. She did call the pt this morning and speak to him. We have been unable to reach her since she left yesterday. A voicemail was left last night to bring his Belbuca in this AM. Pt states this medication controls his pain best. Once she brings this in will stop Percocet. Pt did not do well with PT and cannot walk or stand for any period of time. He may need rehab at d/c. He denies CP, SOB, abd. pain, N/V/D. 01/27/24 Pt has allodynia to BL thighs with light touch yells in pain, mood is labile. He admits to taking more than prescribed Belcuca at home, sometime 2-3 strips at time. This is prescribed by [facility]. It is taking 3-4 people to get him from bed to chair. Pain is improved sitting up in chair. He is eating and drinking well. He states he has leg weakness post spinal stim placement 2 days ago. He states he walked in here and now cannot walk. Pain management physician, Dr. See at [facility], is board certified in pain and neurology. He states sxs do not correlate. He did lay on his abdomen for almost 2 hours for procedure. Baclofen, dilaudid, norco, percocet did not help pain. So restarted on prescribed dose of belbuca by pain management at [facility]. Lyrica increased to max dosing and pt states this is not helping with radicular pain. CT of thoracic and lumbar region in chart to review. No new concerning findings per Dr. See at [facility]- pain mgnt that placed spinal stim. This is day 3 and sxs have not improved. He has been screaming out in pain at times. He is wanting us to give more of his home belbuca than what is prescribed. I do not feel comfortable doing this. Tele- Neurology consulted today to ask if he feels we need to transfer to [facility]. He follows [facility] for narcotic pain meds and was sent to pain management at [facility] for spinal stim placement. Suggested rehab placement for pt and he feels this will not be helpful for him if he cannot walk. Hopefully, Neurology can lead us in the proper direction. Pt has a f/u appointment with Dr. See Tuesday for spinal stim placement post procedure f/u. He denies CP, SOb, abd. pain, N/V/D. 01/28/[address] See from pain management yesterday and he was originally on board with pt tx to higher level of care. This was the recommendation from tele- neurology. However we met resistance from other facilities as they wanted the spinal stimulator out and an MRI done prior to transfer. Dr. See came after 5pm and MRI techs are gone after that time. They are also not available on the weekends as well. Dr. See added Baclofen 10mg BID. He would like him to stay until Tuesday to have MRI at our facility. Pt states he does not have as much pins and needles sensation in BL thighs since spinal stim taken out. He continues to have pain 8/10 today with his narcotic pain medication, Belbuca. He was able to get up out of bed to chair with heavy assist of 2 people and a gate belt today. Discussed with pt he will be here until Tuesday for MRI and then go from there. If he is still unable to walk he may need ECF placement. He is agreeable to this and would like someplace close to home. Reviewed overnight notes of staff and pt has been trying to get larger doses of narcotics than what is prescribed and earlier doses. Discussed again to stay on prescribed regimen from [facility] pain management or else he will run out. We do not carry his medication at this facility. He denies CP, SOB, abd. pain, N/V/D. He admits to continued BLLE weakness, radicular pain from back to BLLE, allodynia to BL thighs with light touch. 01/29/24 Pt resting chair. He was able to get to the chair from the bed with walker and assist of 1 at standby per PCT. He stated that he still cannot walk today to this provider, however he was able to do so per PCT. He states pain has improved to 6/10 today. He continues to have shooting pain, and pins and needles sensation from back to legs he explains. He continues to have no neurological deficits on exam. He had a large BM yesterday and he reports back pain has improved since then. He reports wanting to go home. Explained he still needs the MRI tomorrow and after reviewed by Dr. See with pain management can consider this. Will also need PT eval tomorrow. He denies CP, SOB, Abd. pain, N/V/D. - Review of Systems Constitutional: No Fever, No Chills Eyes: No Symptoms Ears, Nose, & Throat: No Symptoms Respiratory: No Cough, No Short Of Breath Cardiac: No Chest Pain, No Edema, No Syncope Abdominal/Gastrointestinal: No Abdominal Pain, No Nausea, No Vomiting, No Diarrhea Genitourinary Symptoms: No Dysuria Musculoskeletal: Back Pain, No Neck Pain Skin: No Rash Neurological: Parasthesia (BL legs), No Dizziness, No Focal Weakness, No Sensory Changes Psychological: No Symptoms Endocrine: No Symptoms Hematologic/Lymphatic: No Symptoms Immunological/Allergic: No Symptoms Objective Exam General Appearance: no apparent distress, alert, obese Neurologic Exam: alert, oriented x 3, cooperative, 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, normal mood/affect, nml cerebellar function, motor weakness, No motor deficits Skin Exam: normal color, warm, dry Eye Exam: PERRL, EOMI, eyes nml inspection Ears, Nose, Throat Exam: normal ENT inspection, pharynx normal, moist mucous membranes Neck Exam: normal inspection, non-tender, supple, full range of motion Respiratory Exam: normal breath sounds, lungs clear, No respiratory distress Cardiovascular Exam: regular rate/rhythm, normal heart sounds Gastrointestinal/Abdomen Exam: soft, No tenderness, No mass Extremity Exam: normal inspection, parasthesia (BLLE), limited range of motion (BLLE- slow steady gate with walker.) Back Exam: normal inspection, normal range of motion, No CVA tenderness, No vertebral tenderness Male Genitalia Exam: deferred Rectal Exam: deferred Objective Data Vital Signs: Vital Signs - 24 hr Temp Pulse Resp BP Pulse Ox 01/29/24 07:49 98 01/29/24 07:33 98.2 F 69 18 139/65 01/29/24 03:00 98.7 F 66 18 143/63 95 01/28/24 19:19 92 L 01/28/24 19:00 98.9 F 86 19 140/65 96 01/28/24 15:48 97.3 F 77 18 118/71 95 01/28/24 11:13 97.8 F 76 20 144/75 94 L Pain Assessment - Last Documented Pain Intensity 6 Pain Scale Used 0-10 Pain Scale Intake and Output: Intake & Output 01/26/24 01/27/24 01/28/24 01/29/24 11:59 11:59 11:59 11:59 Intake Total 1402 2091 640 3694 Output Total 1150 2564 400 1 Balance 252 -545 119 3080 Weight 139.5 kg Lab Results: Lab Results-Last 24 Hours 01/29/24 01/29/24 01/29/24 Range/Units 05:15 05:15 05:15 WBC 6.5 (4.0-10.5) x10^3/uL RBC 3.95 L (4.1-5.6) x10^6/uL Hgb 11.2 L (12.5-18.0) g/dL Hct 38.8 L (42-50) % MCV 98.2 (78-100) fL MCH 28.4 (26-32) pg MCHC 28.9 L (32-36) g/dL RDW 13.8 (11.5-14.0) % Plt Count 153 (150-450) x10^3/uL MPV 9.8 (7.5-11.0) fL Sodium 138 (135-145) mmol/L Potassium 4.2 (3.5-5.1) mmol/L Chloride 108 H (98-107) mmol/L Carbon Dioxide 23 (22-30) mmol/L Anion Gap 12.4 (5-15) MEQ/L BUN 16 (9-20) mg/dL Creatinine 0.76 (0.66-1.25) mg/dL Estimated GFR 96.7 ML/MIN Glucose 124 H (74-106) mg/dL Calcium 8.0 L (8.4-10.2) mg/dL Total Bilirubin 0.50 (0.2-1.3) mg/dL AST 51 (17-59) U/L ALT 14 (0-50) U/L Alkaline Phosphatase 75 (38-126) U/L Creatine Kinase 878 H (55-170) U/L Serum Total Protein 6.3 (6.3-8.2) g/dL Albumin 3.7 (3.5-5.0) g/dL Assessment/Plan (1) Acute lumbar back pain Current Visit: Yes Status: Acute Qualifiers: Back pain laterality: bilateral Sciatica laterality: bilateral sciatica Code(s): M54.50 - LOW BACK PAIN, UNSPECIFIED (2) Thoracic radiculopathy Current Visit: Yes Status: Acute Code(s): M54.14 - RADICULOPATHY, THORACIC REGION (3) Obesity, morbid, BMI 40.0-49.9 Current Visit: Yes Status: Chronic Code(s): E66.01 - MORBID (SEVERE) OBESITY DUE TO EXCESS CALORIES (4) BPH (benign prostatic hyperplasia) Current Visit: Yes Status: Chronic Code(s): N40.0 - BENIGN PROSTATIC HYPERPLASIA WITHOUT LOWER URINRY TRACT SYMP (5) Elevated creatine kinase Current Visit: Yes Status: Acute (6) Renal mass, right Current Visit: Yes Status: Chronic Assessment & Plan: (1) Acute lumbar back pain Current Visit: Yes Status: Acute Qualifiers: Back pain laterality: bilateral Sciatica laterality: bilateral sciatica Assessment & Plan: - Acute on Chronic - Pain 07/24 - Post spinal stimulator placement with Dr. See - pain management, today - admission observation for uncontrolled pain post procedure. - Dilaudid- narcotic pain medication IV for break through pain - PO narcotic pain meds - baclofen muscle relaxer x1 - continue Lyrica for radicular pain - ice pack PRN - Tele - Narcan - F/u with pain mgnt OP - Pt reported dialudid 2mg is not helping his pain at this point either. He has taken norco in the past and this was helpful for his pain. However, [facility] and changed to belbuca. He last took Belcuca this AM and does not have anymore with him. He takes Belbuca BID. Will start Randlett for now. Will stop Dilaudid IV. Nurse to call and start Belbuca in the AM. We do not carry Belbuca at this hospital. Discussed plan of care with pt and nurse. 01/25 - CT lumbar spine with contrast- reviewed and discussed with Dr. See and Dr. Hassan - PT eval- did not do well today, + weakness. - Discussed case in detail with Dr. See who placed spinal stim 01/26 - tele- neurology consult- discussed case with neurology - Pt asking for more than what is prescribed of Belbuca and admits to taking 2-3 strips at home, " what ever he feels like he needs." - Discussed taking meds as prescribed per [facility] pain management for safety - [facility] - Increased dose of Lyrica not helping pain per pt. - Per PT - taking 3-4 people to get pt from bed to chair. - Will need narcan at D/C. - Narcan on med list IP - Day 3 post spinal stim placement with no improvement - pain stim turned on 01/25 and he feels no improvement per pt. - unable to transfer as other facilities want spinal stim out and MRI. - Dr. See not available until later today to take out spinal stim. 01/27 - Spinal stim removed by Dr. See after 5pm on 01/26 - Unable to do MRI until Tuesday as we do not have techs here on weekends or after 5pm. - Pt reports less pins and needles sensation of BL legs post stim removal - Continued pain in back and down BL legs 06/23 with belbuca - Per overnight reports pt asking for increased dosing of pain meds again and wanting to take more of belbuca as he does this at home. - Pt verbally abusing staff when not feeling well then calling per nursing notes. - Belbuca is from home, prescribed by [facility], we do not carry this medication at this facility and if we increase he will run out of medication. Therefore we cannot increase his dose. - Pt started on baclofen 10mg BID 01/[address] See- pt previously reported this does nothing for his pain on 01/24- will continue for now. - No loss of bowel or bladder since procedure 01/28 - Pain improved today 04/23 - pain improved after BM yesterday per pt - pt was able to walk with walker to chair from bed with standby assist of 1 - MRI tomorrow. Code(s): M54.50 - LOW BACK PAIN, UNSPECIFIED (2) Thoracic radiculopathy Current Visit: Yes Status: Acute Assessment & Plan: - Pt reports acute on chronic pain - see above plan for acute lumbar pain. 01/25 - CT Thoracic spine with IV contrast- reviewed and discussed with Dr. See and Dr. Hassan 01/27 - Pins and needles sensation improved with removal of spinal stim yesterday, per pt. 01/28 - pins and needles sensation improved again today. Code(s): M54.14 - RADICULOPATHY, THORACIC REGION (3) Obesity, morbid, BMI 40.0-49.9 Current Visit: Yes Status: Chronic Assessment & Plan: - encouraged AHA diet and exercise as tolerated. Code(s): E66.01 - MORBID (SEVERE) OBESITY DUE TO EXCESS CALORIES (4) BPH (benign prostatic hyperplasia) Current Visit: Yes Status: Chronic Assessment & Plan: - Continue flomax - Bladder scan PRN - UA negative Code(s): N40.0 - BENIGN PROSTATIC HYPERPLASIA WITHOUT LOWER URINRY TRACT SYMP (5) Elevated creatine kinase Current Visit: Yes Status: Acute Assessment & Plan: - 2:2 laying on abd for extended period of time almost [address] acement - CK 01/26 271- IVF 01/29 - CK 657- IVF turned down last night to 50ml/hr by nursing- no order given. IVF off this morning. - Asked [place] to restart IVF @ 100ml/hr 01/30 - CK 878 but pain is improving - Continue IVF (6) Renal mass, right Current Visit: Yes Status: Chronic Assessment & Plan: - as seen on lumbar CT: 2. 2.6 cm right renal enhancing mass worrisome for malignancy. - Pt aware of this and states this is chronic. He reports he follows [facility] OP for this at [facility]. VTE: [facility] Next of KIN: , Rabia Mccrary [phone] D/c plan: Tuesday? Code status: Full Code(s): N28.89 - OTHER SPECIFIED DISORDERS OF KIDNEY AND URETER Code(s): N28.89 - OTHER SPECIFIED DISORDERS OF KIDNEY AND URETER
[2024-01-30 04:44] LABS: Hematocrit 38.4 % (42-50); Hemoglobin 11.5 g/dL (12.5-18.0); Mean Cell Volume 94.8 fL (78-100); Mean Corpuscular Hemoglobin 28.4 pg (26-32); Mean Corpuscular Hgb Concent. 29.9 g/dL (32-36); Mean Platelet Volume 9.4 fL (7.5-11.0); Platelet Count 170 x10^3/uL (150-450); Red Blood Count 4.05 x10^6/uL (4.1-5.6); Red Cell Distribution Width 13.8 % (11.5-14.0); White Blood Count 6.1 x10^3/uL (4.0-10.5)
[2024-01-30 05:03] LABS: ALBUMIN 3.6 g/dL (3.5-5.0); ANION GAP 9.7 MEQ/L (5-15); BILIRUBIN,TOTAL 0.4 mg/dL (0.2-1.3); Calcium 8.1 mg/dL (8.4-10.2); Creatinine 1 0.78 mg/dL (0.66-1.25); EST GLOMERULAR FILTRATION RATE 95.9 ML/MIN; Potassium 4.4 mmol/L (3.5-5.1); Total Protein 6.1 g/dL (6.3-8.2)
--- NOTE | 2024-01-30 05:25 | PCM.NOTE ---
Date and Time: 01/30/24 0523 Subjective Assessment: Mr Mccrary is a 68 year old male with a pmhx of BPH, heart stent, peripheral neuropathy, chronic thoracic/lumbar back pain with radiculopathy > 10 yrs admitted 01/25/24 after a spinal stimulator was placed by Dr. See (pain management) and the patient woke up from the procedure with severe pain. CT of the thoracic and lumbar spine with no new concerning findings per Dr. See. Tele-Neurology consulted with recommendations for transfer to a higher level of care, however we met resistance from other facilities as they wanted the spinal stimulator out and an MRI done prior to transfer.Pain stimulator removed 01/27/24. MRI is planned today. Pain has improved since admission with his home Belbuca [facility] Patient admits to taking more than prescribes dose at home, which he has been advised to take as prescribed. Patient endorsed initially that he was unable to walk, but now states he can ambulate short distances with a walker. Patient is now requesting discharge. Plan is for Physical therapy to evaluate today. Likely dismiss after MRI is done, pending results and Dr. Sees recommendations. 01/30/24: Met with patient bedside. Endorses that pain is almost at baseline, now rating at 6/10 on numerical pain scale, normal pain rating 4-5/10. Patient states he is ambulating some, would like to work with PT today. MRI to be completed at 1pm. Pending results and recommendations, possible dc. <ROLDAN ALONSO - Last Filed: 01/30/24 13:04> Date and Time: 01/31/2417 <NITHIN PEARCE - Last Filed: 01/31/24 06:18> - Review of Systems Constitutional: No Symptoms Eyes: No Symptoms Ears, Nose, & Throat: No Symptoms Respiratory: No Symptoms Cardiac: No Symptoms Abdominal/Gastrointestinal: No Symptoms Genitourinary Symptoms: No Symptoms Musculoskeletal: Joint Pain Neurological: No Symptoms Psychological: No Symptoms Endocrine: No Symptoms Hematologic/Lymphatic: No Symptoms <ROLDAN ALONSO - Last Filed: 01/30/24 13:04> Objective Exam General Appearance: no apparent distress Neurologic Exam: alert, oriented x 3, cooperative Skin Exam: normal color Eye Exam: PERRL Ears, Nose, Throat Exam: normal ENT inspection Neck Exam: normal inspection Respiratory Exam: normal breath sounds, lungs clear Cardiovascular Exam: regular rate/rhythm, normal heart sounds Gastrointestinal/Abdomen Exam: soft, normal bowel sounds Extremity Exam: normal inspection Back Exam: decreased range of motion (due to pain) Male Genitalia Exam: deferred Rectal Exam: deferred <ROLDAN ALONSO - Last Filed: 01/30/24 13:04> Objective Data Vital Signs: Vital Signs - 24 hr Temp Pulse Resp BP Pulse Ox 01/30/24 04:28 98.7 F 79 20 147/70 92 L 01/30/24 03:00 18 01/29/24 23:00 98.9 F 77 17 126/66 92 L 01/29/24 19:00 98.6 F 87 19 111/53 94 L 01/29/24 15:00 97.7 F 93 H 16 128/66 92 L 01/29/24 11:00 97.9 F 70 16 142/65 93 L 01/29/24 07:49 98 01/29/24 07:33 98.2 F 69 18 139/65 Pain Assessment - Last Documented Pain Intensity 6 Pain Scale Used 0-10 Pain Scale Intake and Output: Intake & Output 01/27/24 01/28/24 01/29/24 01/30/24 11:59 11:59 11:59 11:59 Intake Total 2091 640 3694 1680 Output Total 2564 400 1 1 Balance -238 971 5944 1679 Lab Results: Lab Results-Last 24 Hours 01/29/24 01/29/24 01/29/24 Range/Units 05:15 05:15 05:15 WBC 6.5 (4.0-10.5) x10^3/uL RBC 3.95 L (4.1-5.6) x10^6/uL Hgb 11.2 L (12.5-18.0) g/dL Hct 38.8 L (42-50) % MCV 98.2 (78-100) fL MCH 28.4 (26-32) pg MCHC 28.9 L (32-36) g/dL RDW 13.8 (11.5-14.0) % Plt Count 153 (150-450) x10^3/uL MPV 9.8 (7.5-11.0) fL Sodium 138 (135-145) mmol/L Potassium 4.2 (3.5-5.1) mmol/L Chloride 108 H (98-107) mmol/L Carbon Dioxide 23 (22-30) mmol/L Anion Gap 12.4 (5-15) MEQ/L BUN 16 (9-20) mg/dL Creatinine 0.76 (0.66-1.25) mg/dL Estimated GFR 96.7 ML/MIN Glucose 124 H (74-106) mg/dL Calcium 8.0 L (8.4-10.2) mg/dL Total Bilirubin 0.50 (0.2-1.3) mg/dL AST 51 (17-59) U/L ALT 14 (0-50) U/L Alkaline Phosphatase 75 (38-126) U/L Creatine Kinase 878 H (55-170) U/L Serum Total Protein 6.3 (6.3-8.2) g/dL Albumin 3.7 (3.5-5.0) g/dL 01/30/24 01/30/24 01/30/24 Range/Units 04:30 04:30 04:30 WBC 6.1 (4.0-10.5) x10^3/uL RBC 4.05 L (4.1-5.6) x10^6/uL Hgb 11.5 L (12.5-18.0) g/dL Hct 38.4 L (42-50) % MCV 94.8 (78-100) fL MCH 28.4 (26-32) pg MCHC 29.9 L (32-36) g/dL RDW 13.8 (11.5-14.0) % Plt Count 170 (150-450) x10^3/uL MPV 9.4 (7.5-11.0) fL Sodium 139 (135-145) mmol/L Potassium 4.4 (3.5-5.1) mmol/L Chloride 107 (98-107) mmol/L Carbon Dioxide 27 (22-30) mmol/L Anion Gap 9.7 (5-15) MEQ/L BUN 16 (9-20) mg/dL Creatinine 0.78 (0.66-1.25) mg/dL Estimated GFR 95.9 ML/MIN Glucose 127 H (74-106) mg/dL Calcium 8.1 L (8.4-10.2) mg/dL Total Bilirubin 0.40 (0.2-1.3) mg/dL AST 34 (17-59) U/L ALT 15 (0-50) U/L Alkaline Phosphatase 75 (38-126) U/L Creatine Kinase 688 H (55-170) U/L Serum Total Protein 6.1 L (6.3-8.2) g/dL Albumin 3.6 (3.5-5.0) g/dL <ROLDAN ALONSO - Last Filed: 01/30/24 13:04> Vital Signs: Vital Signs - 24 hr Temp Pulse Resp BP Pulse Ox 01/30/24 20:13 97.4 F 68 18 163/89 94 L 01/30/24 16:48 97.6 F 69 18 139/63 95 01/30/24 12:00 97.1 F 70 17 156/81 94 L 01/30/24 09:56 76 138/64 01/30/24 07:50 97.8 F 65 18 185/82 93 L Pain Assessment - Last Documented Pain Intensity 7 Pain Scale Used 0-10 Pain Scale Intake and Output: Intake & Output 01/28/24 01/29/24 01/30/24 01/31/24 11:59 11:59 11:59 11:59 Intake Total 640 3694 1800 240 Output Total 400 1 1 Balance 240 3693 1799 240 Multi-Disciplinary Progress Notes: Multi-Disciplinary Progress Notes 01/30/24 14:42 Case Management Note by Amy Dang Addendum entered by Amy Dang 01/30/24 14:43: ALSO NOTIFIED [facility] TEAM POP SINGER [place]MA SO SHE COULD START THE PROCESS WELL Original Note: [facility] REFERRAL PACKET SENT TO [facility] AND TO [facility] SO THEY CAN START PRECERT ON THE ORDER. S/W EMMA FROM [facility]- [facility]. Initialized on 01/30/24 14:42 - END OF NOTE 01/30/24 14:34 Case Management Note by Amy Dang S/W ABOUT NEEDS AT [place]. SHE DECLINES WANTING TO LOOK INTO A REHAB STAY UNDER PRIVATE PAY CIRCUMSTANCES. SHE PLANS FOR PATIENT TO RETURN HOME WITH HER ASSISTANCE AND [facility]. NO OTHER NEW NEEDS IDENTIFIED AT THIS TIME Initialized on 01/30/24 14:34 - END OF NOTE 01/30/24 12:47 Physical Therapy Note by Gavi(L#[id number])Iris PT. SEEN BY P.T. THIS A.M. RATES LBP AT LE THIGH PN AT 7/10. PT. REPORTS CONT. HYPERESTHESIA BILATERAL THIGHS. PT. IN BEDSIDE RECLINER UPON P.T. ARRIVAL TO ROOM. SIT TO STAND - CGA-SBA. PT. AMBULATED ~80' W/ BARIATRIC RW AND SBA. NOTED FLEXED TRUNK POSTURE AND SLOW PACE. O2 SATS WNL. PT. PERFORMED SEATED AND SUPINE LE EX'S OF ANKLE PUMPS, LAQS, HEEL SLIDES, GLUT SETS, QUAD SETS, ABD SLIDES. PT.'S TOLERANCE TO TOUCH BILATERAL LES IMPROVED TODAY W/ EX'S. PT. DENIED THAT CP OR HEAT PROVIDE ANY PN RELIEF. PT. ABLE TO PERFORM SIT TO SUPINE W/ CGA. PT. CONCERNED ABOUT 'S ABILTY TO CARE FOR HIM AT HOME. HE DOES HAVE RW AND POWER W/C. PT. WOULD BENEFIT FROM [facility] REFERRAL WELL. TO CONT. W/ P.T. 5X/WK UNTIL D/C. Initialized on 01/30/24 12:47 - END OF NOTE 01/30/24 12:00 (created 01/30/24 13:52) Case Management Note by Amy Dang S/W PATIENT REGARDING NEEDS AT [place]. PATIENT WALKING WITH WALKER AND PHYSICAL THERAPY. PATIENT REPORTS HE HAS WALKER AT HOME. PATIENT ALSO HAS A MOTORIZED WHEELCHAIR TO USE AT HOME WELL. HE REPORTS HIS IS HOME WITH HIM MOST OF THE TIME. WE DISCUSSED REHAB STAY VS HHC. PATIENT WOULD LIKE TO DO HHC HE CURRENTLY DOES NOT HAVE COVERAGE FOR REHAB STAY. PATIENT WOULD LIKE TO USE [facility] TO USE HIS [facility] BENEF[facility]. PATENT USUALLY GETS HIS SCRIPTS FROM [facility] BUT ANYTHING HE WOULD NEED IMMEDIATELY NEEDS TO BE SENT TO LOCAL PHARMACY. NO OTHER NEW NEEDS IDENTIFIED AT THIS TIME Initialized on 01/30/24 13:52 - END OF NOTE <NITHIN PEARCE - Last Filed: 01/31/24 06:18> Assessment/Plan (1) Acute lumbar back pain Status: Acute Qualifiers: Back pain laterality: bilateral Sciatica laterality: bilateral sciatica Assessment & Plan: - Acute on Chronic - Pain 07/24 - Post spinal stimulator placement with Dr. See - pain management, today - admission observation for uncontrolled pain post procedure. - Dilaudid- narcotic pain medication IV for break through pain - PO narcotic pain meds - baclofen muscle relaxer x1 - continue Lyrica for radicular pain - ice pack PRN - Tele - Narcan - F/u with pain mgnt OP - Pt reported dialudid 2mg is not helping his pain at this point either. He has taken norco in the past and this was helpful for his pain. However, [facility] and changed to belbuca. He last took Belcuca this AM and does not have anymore with him. He takes Belbuca BID. Will start [place] for now. Will stop Dilaudid IV. Nurse to call and start Belbuca in the AM. We do not carry Belbuca at this hospital. Discussed plan of care with pt and nurse. 01/25 - CT lumbar spine with contrast- reviewed and discussed with Dr. See and Dr. Hassan - PT eval- did not do well today, + weakness. - Discussed case in detail with Dr. See who placed spinal stim 01/26 - tele- neurology consult- discussed case with neurology - Pt asking for more than what is prescribed of Belbuca and admits to taking 2-3 strips at home, " what ever he feels like he needs." - Discussed taking meds as prescribed per [facility] pain [facility] for [facility] - [facility] - Increased dose of Lyrica not helping pain per pt. - Per PT - taking 3-4 people to get pt from bed to chair. - Will need narcan at D/C. - Narcan on med list IP - Day 3 post spinal stim placement with no improvement - pain stim turned on 01/25 and he feels no improvement per pt. - unable to transfer as other facilities want spinal stim out and MRI. - Dr. See not available until later today to take out spinal stim. 01/27 - Spinal stim removed by Dr. See after 5pm on 01/26 - Unable to do MRI until Tuesday as we do not have techs here on weekends or after 5pm. - Pt reports less pins and needles sensation of BL legs post stim removal - Continued pain in back and down BL legs 06/23 with belbuca - Per overnight reports pt asking for increased dosing of pain meds again and wanting to take more of belbuca as he does this at home. - Pt verbally abusing staff when not feeling well then calling per nursing notes. - Belbuca is from home, prescribed by [facility], we do not carry this medication at this facility and if we increase he will run out of medication. Therefore we cannot increase his dose. - Pt started on baclofen 10mg BID 01/[address] See- pt previously reported this does nothing for his pain on 01/24- will continue for now. - No loss of bowel or bladder since procedure 01/28 - Pain improved today 04/23 - pain improved after BM yesterday per pt - pt was able to walk with walker to chair from bed with standby assist of 1 - MRI tomorrow. 01/29: -PT eval, plan for MRI today, discharge pending results -Pain almost at baseline Code(s): M54.50 - LOW BACK PAIN, UNSPECIFIED (2) Thoracic radiculopathy Current Visit: Yes Status: Acute Assessment & Plan: - Pt reports acute on chronic pain - see above plan for acute lumbar pain. 01/25 - CT Thoracic spine with IV contrast- reviewed and discussed with Dr. See and Dr. Hassan 01/27 - Pins and needles sensation improved with removal of spinal stim yesterday, per pt. 01/28 - pins and needles sensation improved again today. 01/29: -improved Code(s): M54.14 - RADICULOPATHY, THORACIC REGION (3) Obesity, morbid, BMI 40.0-49.9 Current Visit: Yes Status: Chronic Assessment & Plan: - encouraged AHA diet and exercise as tolerated. Code(s): E66.01 - MORBID (SEVERE) OBESITY DUE TO EXCESS CALORIES (4) BPH (benign prostatic hyperplasia) Current Visit: Yes Status: Chronic Assessment & Plan: - Continue flomax - Bladder scan PRN - UA negative Code(s): N40.0 - BENIGN PROSTATIC HYPERPLASIA WITHOUT LOWER URINRY TRACT SYMP (5) Elevated creatine kinase Current Visit: Yes Status: Acute Assessment & Plan: - 2:2 laying on abd for extended period of time almost 2 hours during stim placement - CK 3 271- IVF 01/29 - CK 657- IVF turned down last night to 50ml/hr by nursing- no order given. IVF off this morning. - Asked INDIA Daigle to restart IVF @ 100ml/hr 01/30 - CK 878 but pain is improving - Continue IVF (6) Renal mass, right Current Visit: Yes Status: Chronic Assessment & Plan: - as seen on lumbar CT: 2. 2.6 cm right renal enhancing mass worrisome for malignancy. - Pt aware of this and states this is chronic. He reports he follows Nephro OP for this at [facility]. VTE: SCD Next of KIN: , Rabia Mccrary [phone] D/c plan: Tuesday? Code status: Full Code(s): M54.50 - LOW BACK PAIN, UNSPECIFIED (2) Thoracic radiculopathy Status: Acute Code(s): M54.14 - RADICULOPATHY, THORACIC REGION (3) Obesity, morbid, BMI 40.0-49.9 Status: Chronic Code(s): E66.01 - MORBID (SEVERE) OBESITY DUE TO EXCESS CALORIES (4) BPH (benign prostatic hyperplasia) Status: Chronic Code(s): N40.0 - BENIGN PROSTATIC HYPERPLASIA WITHOUT LOWER URINRY TRACT SYMP (5) Elevated creatine kinase Status: Acute (6) Renal mass, right Status: Chronic Code(s): N28.89 - OTHER SPECIFIED DISORDERS OF KIDNEY AND URETER <ROLDAN ALONSO - Last Filed: 01/30/24 13:04> JACINTO Encounter - JACINTO Encounter Attestation JACINTO Encounter Attestation: "IhMACKENZIE Llanos on 01/30/2024 andhavediscussed pertinent aspects of their care with Roldan Alonso Hesterand agree with the history, physical exam (any modifications based on my personal exam will be noted below), assessment, and plan as outlined in original note. Please see immediately below for my summary of findings and additional assessment and plan along with any meaningful corrections/explanations to the Subjective/Objective portions of the JACINTO note will be noted." My portion of the encounter took place via telemedicine. <NITHIN PEARCE - Last Filed: 01/31/24 06:18>
[2024-01-30 16:49] VITALS: RESP 18
--- NOTE | 2024-01-30 18:14 | PCM.DS ---
Discharge Summary Date of Admission: 01/25/24 13:25 Date of Discharge: 01/30/24 Admitting Physician: JUNIOR VILLASENOR MD Consults: Consults on Case 01/27/24 10:22 Consult Neurology ROUTINE Primary Care Provider: [facility] <ROLDAN ALONSO - Last Filed: 01/30/24 18:09> Date of Admission: 01/25/24 13:25 Admitting Physician: JUNIOR VILLASENOR MD Consults: Consults on Case 01/27/24 10:22 Consult Neurology ROUTINE Primary Care Provider: [facility] <NITHIN PEARCE - Last Filed: 01/31/24 06:16> Allergies <ROLDAN ALONSO - Last Filed: 01/30/24 18:09> <TEOFILONITHIN CAUSEY - Last Filed: 01/31/24 06:16> Allergies No Known Drug Allergies Allergy (Unverified 01/25/24 14:06) Hospital Summary - Hospital Course Hospital Course: Mr Mccrary is a 68 year old male with a pmhx of BPH, heart stent, peripheral neuropathy, chronic thoracic/lumbar back pain with radiculopathy > 10 yrs admitted 01/25/24 after a spinal stimulator was placed by Dr. See (pain management) and the patient woke up from the procedure with severe pain. CT of the thoracic and lumbar spine with no new concerning findings per Dr. See. Tele-Neurology consulted with recommendations for transfer to a higher level of care, however we met resistance from other facilities as they wanted the spinal stimulator out and an MRI done prior to transfer.Pain stimulator removed 01/27/24. MRI was planned today, but unfortunately unable to obtain due to weight requirement. Pain has improved since admission with his home Belbuca [facility]. Patient admits to taking more than prescribes dose at home, which he has been advised to take as prescribed. Patient endorsed initially that he was unable to walk, but now states he can ambulate short distances with a walker and assist x 1. Patient did have two episodes of urinary incontinence. Will transfer to higher level of care as recommended by neurology. Patient agreeable to plan, transfer accepted at [facility]. - Vitals & Intake/Output Vital Signs: Vital Signs Temperature 97.6 F 01/30/24 16:48 Pulse Rate 69 01/30/24 16:48 Respiratory Rate 18 01/30/24 16:48 Blood Pressure 139/63 01/30/24 16:48 O2 Sat by Pulse Oximetry 95 01/30/24 16:48 Intake & Output: Intake & Output 01/28/24 01/29/24 01/30/24 01/31/24 11:59 11:59 11:59 11:59 Intake Total 640 3694 1800 120 Output Total 400 1 1 Balance 240 3693 1799 120 - Lab Result Diagrams: 01/30/24 04:30 01/30/24 04:30 Lab Results-Last 24 Hrs: Lab Results-Last 24 Hours 01/30/24 01/30/24 01/30/24 Range/Units 04:30 04:30 04:30 WBC 6.1 (4.0-10.5) x10^3/uL RBC 4.05 L (4.1-5.6) x10^6/uL Hgb 11.5 L (12.5-18.0) g/dL Hct 38.4 L (42-50) % MCV 94.8 (78-100) fL MCH 28.4 (26-32) pg MCHC 29.9 L (32-36) g/dL RDW 13.8 (11.5-14.0) % Plt Count 170 (150-450) x10^3/uL MPV 9.4 (7.5-11.0) fL Sodium 139 (135-145) mmol/L Potassium 4.4 (3.5-5.1) mmol/L Chloride 107 (98-107) mmol/L Carbon Dioxide 27 (22-30) mmol/L Anion Gap 9.7 (5-15) MEQ/L BUN 16 (9-20) mg/dL Creatinine 0.78 (0.66-1.25) mg/dL Estimated GFR 95.9 ML/MIN Glucose 127 H (74-106) mg/dL Calcium 8.1 L (8.4-10.2) mg/dL Total Bilirubin 0.40 (0.2-1.3) mg/dL AST 34 (17-59) U/L ALT 15 (0-50) U/L Alkaline Phosphatase 75 (38-126) U/L Creatine Kinase 688 H (55-170) U/L Serum Total Protein 6.1 L (6.3-8.2) g/dL Albumin 3.6 (3.5-5.0) g/dL - Procedures and Test Procedures and Tests throughout Hospitalization: Therapy Orders & Screens 01/25/24 13:25 Oxygen Nasal Cannula 3 lpm Comment: PRN 01/25/24 14:40 OT Screen per Nursing Assess ONCE Comment: Protocol Order Physician Instructions: Greater than 3 points order OT Admission Screening Reason For Exam: Triggered on Admission Diagnosis: back pain post spinal stim placement Open Wound/Cellutlitis/Pressure Ulcers: No Acute Fx/ORIF/Change in wt bearing status: No Severe MUSCULOSKELETAL pain: No ADL Dysfunction: Yes Acute CVA w/Hemiparesis/Hemiplegia: No Decreased Functional Mobility/Strength: Yes Sprain/Strain: No Acute Post-op Mobility Dysfunction: No Total Points: 4 PT Screen per Nursing Assess ONCE Comment: Protocol Order Physician Instructions: Greater than 3 points order PT Admission Screenin Reason For Exam: Triggered on Admission Diagnosis: back pain post spinal stim placement Open Wound/Cellutlitis/Pressure Ulcers: No Acute Fx/ORIF/Change in wt bearing status: No Severe MUSCULOSKELETAL pain: No ADL Dysfunction: Yes Acute CVA w/Hemiparesis/Hemiplegia: No Decreased Functional Mobility/Strength: Yes Sprain/Strain: No Acute Post-op Mobility Dysfunction: No Total Points: 4 01/25/24 14:43 PT Eval & Treat ( Order) ONCE Reason for Eval:: thoracic and lumbar back pain post procedure in pain mgnt on 01/24 Diagnosis: back pain post spinal stim placement <ROLDAN ALONSO - Last Filed: 01/30/24 18:09> - Vitals & Intake/Output Vital Signs: Vital Signs Temperature 97.4 F 01/30/24 20:13 Pulse Rate 68 01/30/24 20:13 Respiratory Rate 18 01/30/24 20:13 Blood Pressure 163/89 01/30/24 20:13 O2 Sat by Pulse Oximetry 94 L 01/30/24 20:13 Intake & Output: Intake & Output 01/28/24 01/29/24 01/30/24 01/31/24 11:59 11:59 11:59 11:59 Intake Total 640 3694 1800 240 Output Total 400 1 1 Balance 240 3693 1799 240 - Lab Result Diagrams: 01/30/24 04:30 01/30/24 04:30 - Procedures and Test Procedures and Tests throughout Hospitalization: Therapy Orders & Screens 01/25/24 13:25 Oxygen Nasal Cannula 3 lpm Comment: PRN 01/25/24 14:40 OT Screen per Nursing Assess ONCE Comment: Protocol Order Physician Instructions: Greater than 3 points order OT Admission Screening Reason For Exam: Triggered on Admission Diagnosis: back pain post spinal stim placement Open Wound/Cellutlitis/Pressure Ulcers: No Acute Fx/ORIF/Change in wt bearing status: No Severe MUSCULOSKELETAL pain: No ADL Dysfunction: Yes Acute CVA w/Hemiparesis/Hemiplegia: No Decreased Functional Mobility/Strength: Yes Sprain/Strain: No Acute Post-op Mobility Dysfunction: No Total Points: 4 PT Screen per Nursing Assess ONCE Comment: Protocol Order Physician Instructions: Greater than 3 points order PT Admission Screenin Reason For Exam: Triggered on Admission Diagnosis: back pain post spinal stim placement Open Wound/Cellutlitis/Pressure Ulcers: No Acute Fx/ORIF/Change in wt bearing status: No Severe MUSCULOSKELETAL pain: No ADL Dysfunction: Yes Acute CVA w/Hemiparesis/Hemiplegia: No Decreased Functional Mobility/Strength: Yes Sprain/Strain: No Acute Post-op Mobility Dysfunction: No Total Points: 4 01/25/24 14:43 PT Eval & Treat (MD Order) ONCE Reason for Eval:: thoracic and lumbar back pain post procedure in pain mgnt on 01/24 Diagnosis: back pain post spinal stim placement <NITHIN PEARCE - Last Filed: 01/31/24 06:16> Discharge Exam General Appearance: no apparent distress Neurologic Exam: alert, oriented x 3, cooperative Eye Exam: PERRL Ears, Nose, Throat Exam: normal ENT inspection Neck Exam: normal inspection Respiratory Exam: normal breath sounds, lungs clear Cardiovascular Exam: regular rate/rhythm, normal heart sounds Gastrointestinal/Abdomen Exam: soft, normal bowel sounds Male Genitalia Exam: deferred Rectal Exam: deferred Back Exam: decreased range of motion Extremity Exam: parasthesia, limited range of motion Skin Exam: normal color Wound Assessment: Skin/Wound Assessment Wound/Incision Assessment Start: 01/30/24 08:26 Text: Status: Active Freq: Q6H Protocol: Document 01/30/24 14:26 RDUHNE (Rec: 01/30/24 16:08 [facility] [id number]) Wound Photo Photo Taken No <ROLDAN ALNOSO - Last Filed: 01/30/24 18:09> Final Diagnosis/Problem List - Final Discharge Diagnosis/Problem (1) Acute lumbar back pain Status: Acute Code(s): M54.50 - LOW BACK PAIN, UNSPECIFIED (2) Thoracic radiculopathy Status: Acute Code(s): M54.14 - RADICULOPATHY, THORACIC REGION (3) Obesity, morbid, BMI 40.0-49.9 Status: Chronic Code(s): E66.01 - MORBID (SEVERE) OBESITY DUE TO EXCESS CALORIES (4) BPH (benign prostatic hyperplasia) Status: Chronic Code(s): N40.0 - BENIGN PROSTATIC HYPERPLASIA WITHOUT LOWER URINRY TRACT SYMP (5) Elevated creatine kinase Status: Acute (6) Renal mass, right Status: Chronic Code(s): N28.89 - OTHER SPECIFIED DISORDERS OF KIDNEY AND URETER <ROLDAN ALONSO - Last Filed: 01/30/24 18:09> <ROLDAN ALONSO - Last Filed: 01/30/24 18:09> <NITHIN PEARCE - Last Filed: 01/31/24 06:16> - Discharge Disposition: DC TO OTHER HOSP Condition: Fair Prescriptions: New Prochlorperazine 10 mg/2 ml [Compazine 10 MG/2 ML] 10 mg IM Q6H PRN PRN PRN Reason: Nausea/Vomiting Docusate Sodium 100 mg [Docusate Sodium 100 MG] 100 mg PO BIDPRN PRN cap PRN Reason: Constipation Hydromorphone 1 mg/1Ml Inj [Hydromorphone 1 mg/ml Injection] 0.4 mg IV Q3H PRN PRN PRN Reason: Severe Pain Baclofen 10 mg [Lioresal 10 mg] 10 mg PO BID tablet Pregabalin [Lyrica 150Mg] 300 mg PO BID cap Naloxone HCl 0.4 mg/ml [Narcan 0.4 MG/ML] 0.4 mg IV PRN PRN PRN Reason: resp. depression Continue Aspirin EC 81 mg [Ecotrin 81 mg] 81 mg PO DAILY Atorvastatin Calcium 80 mg PO HS Duloxetine HCl [Cymbalta] 60 mg PO DAILY Metoprolol Succinate 50 mg [Toprol Xl 50 MG] 50 mg PO DAILY Tamsulosin HCl 0.4 mg [Flomax 0.4 MG] 0.4 mg PO HS Discontinued Pregabalin 225 mg PO BID Additional Instructions: HOLD XARELTO AND VOLTAREN UNTIL 01/31/24 [facility] HAS BEEN SET UP. THEY WILL CALL YOU TO ARRANGE A TIME TO COME SEE YOU. THEIR PHONE NUMBER IS [phone] Follow up with: HOSPITAL,'S [Primary Care Provider] - JACINTO Encounter - JACINTO Encounter Attestation JACINTO Encounter Attestation: "MACKENZIE Lugo on 01/30/2024 andhavediscussed pertinent aspects of their care with oRldan Mi agree with the history, physical exam (any modifications based on my personal exam will be noted below), assessment, and plan as outlined in original note. Please see immediately below for my summary of findings and additional assessment and plan along with any meaningful corrections/explanations to the Subjective/Objective portions of the JACINTO note will be noted." My portion of the encounter took place via telemedicine. <NITHIN PEARCE - Last Filed: 01/31/24 06:16>
[2024-01-30 20:14] VITALS: BP 163/89; PULSE 68; TEMP 97.4; O2SAT 94
== END 2024-01-30 20:34 ==
LOC: SDC-PAIN 06:21 → MED SURG 13:25
PROVIDERS: ADMIT Internal Medicine; ATTEND Internal Medicine
DX: M54.50 Low back pain, unspecified (principal); M54.14 Radiculopathy, thoracic region; M96.1 Postlaminectomy syndrome, not elsewhere classified; E66.01 Morbid (severe) obesity due to excess calories; N40.0 Benign prostatic hyperplasia without lower urinary tract symptoms; R79.89 Other specified abnormal findings of blood chemistry; N28.89 Other specified disorders of kidney and ureter; R32 Unspecified urinary incontinence; G62.9 Polyneuropathy, unspecified; S80.212A Abrasion, left knee, initial encounter; Z79.899 Other long term (current) drug therapy; Z20.828 Contact with and (suspected) exposure to other viral communicable diseases; Z79.01 Long term (current) use of anticoagulants
CPT/HCPCS: 01941; 36415; 63650; 72100; 72130; 72133; 77002; 80048; 80053; 81001; 82550; 85027; 93268; 94762; 97110; 97161; 97530; C1897; G0378; Q3014; J1170; J2001; J2270; J2704; A9270-GY